=== PATIENT | female | born 1955 | race Caucasian/White ===

== ENCOUNTER → 2016-09-16 13:20 | Outpatient (CLI) | payer MEDICAID ==
[2016-02-22 14:29] VITALS: BMI 32.0
[~2016-09-16 13:20] MED LIST: CLONAZEPAM0.25 MG/TA PO; HYDROCODON-ACE1 EAC7 PO; HYDROCODONE-APA1 TAB PO; LOPRESSOR25 MG PO; PERCOCET 10/3251 TA1 PO; PROZAC20 MG; VALIUM5 MG
== END | disposition home or self-care (01) ==
LOC: D.CT 13:20
DX: I74.5 Embolism and thrombosis of iliac artery (principal)

== ENCOUNTER 2016-09-29 08:20 | Inpatient (IN) | payer MEDICAID ==
[2016-09-29] VITALS (37 sets, daily range): BP systolic 58–150; BP diastolic 29–87; BMI 30.8
[~2016-09-29] VITALS: Ht 160 cm; Wt 83.2 kg
--- NOTE | ~2016-09-29 | HEMODYNAMI ---
PATIENT:PREMA SOLORIO MEDICAL RECORD: [id number] : 53 LOCATION:[facility] ADMISSION DATE: 09/29/16 Generatedon:09/29/201612:24 Patient name: PREMA SOLORIO Patient #: [id number] SSN: : 1955 Date of study: 09/29/2016 Page: Of Hemodynamic Procedure Report Patient Data Patient Demographics Procedure consent was obtained First Name: PREMA Gender: Female Last Name: OSMIN : 1955 Patient #: [id number] Age: 60 year(s) Race: Unknown Additional ID: [id number] Contact details Address: [address] [place] [address] [place] State: [place] City: [facility] Zip code: [address] Past Medical History Allergies: No known allergies Admission Admission Data Admission Date: 09/29/2016 Admission Time: 8:20 Height (in.): 63 BSA: 1.82 (m2) Height (cm.): 160.02 BMI: 30.82 (kg/m2) Weight (lbs.): 174 Weight (kg.): 78.93 Lab Results Lab Result Date: 09/29/2016 Lab Result Time: 9:55 Biochemistry Name Units Result Min Max BUN mg/dl 16 --(---*)-- 7 18 Creatinine mg/dl 0.7 --(*---)-- 0.6 1.3 CBC Name Units Result Min Max Hematocrit % 40.3 -*(----)-- 42 54 Hemoglobin g/dl 13.2 -*(----)-- 13.5 17.5 Procedure Procedure Types Cath Procedure Diagnostic Procedure C [facility] w/Coronaries Miscellaneous Procedures Moderate Sedation up to 45 minutes Peripheral Cath Diagnostic Procedure Cath Peripheral Luhup-Kemcybt-Ojs-Off Procedure Description Procedure Date Procedure Date: 09/29/2016 Procedure Start Time: 11:09 Procedure End Time: 12:08 Procedure Staff Name Function Bulmaro Graf MD Performing Physician Yamila Mai RT Scrub Cosmo Soto RN Nurse Vik Butler RT Monitor Procedure Data Cath Procedure Fluoroscopy Diagnostic fluoroscopy Total fluoroscopy Time: time: 22.4 min 22.4 min Diagnostic fluoroscopy Total fluoroscopy dose: dose: 1262 mGy 1262 mGy Contrast Material Contrast Material Type Amount (ml) Isovue 300 267 Entry Location Entry Primary Successful Side Size Upsize 1 Upsize Entry Closure [place] ccessful Closure Location (Fr) (Fr) 2 (Fr) Remarks Device Remarks Femoral Left 5 Fr 6 Fr 6 Fr Exoseal artery Mid-Length Short Femoral Right 5 Fr 7 Fr Short Exoseal artery Femoral Right 6 Fr vein Short Estimated blood loss: 10 ml Diagnostic catheters Device Type Used For End Catheter Placement Cordis Tempo 5Fr UF Procedure catheter Cordis Tempo 5Fr UF Procedure catheter Cordis 5Fr Pigtail Procedure Catheter (MP) Cordis 5Fr JL 4.0 Procedure Catheter (MP) Cordis 5Fr 3DRC Catheter Procedure (MP) Procedure Complications No complications Procedure Medications Medication Administration Route Dosage Oxygen NC 2 l/min Heparin Flush Bag added to field 2 bags (1000units/500ml NS) 0.9% NaCl I.V. 100 ml/hr Fentanyl I.V. 50 mcg Versed I.V. 1 mg Fentanyl I.V. 50 mcg Versed I.V. 1 mg Fentanyl I.V. 50 mcg Versed I.V. 1 mg Fentanyl I.V. 50 mcg Versed I.V. 1 mg Heparin Bolus I.V. 5000 units Fentanyl I.V. 50 mcg Versed I.V. 1 mg Fentanyl I.V. 50 mcg Versed I.V. 1 mg Fentanyl I.V. 50 mcg Heparin Bolus I.V. 3000 units Fentanyl I.V. 50 mcg Fentanyl I.V. 50 mcg Versed I.V. 1 mg Hemodynamics Rest BSA: 1.82 (m2) HGB: 13.2 (g/dl) O2 Consumption: Estimated: 171.24 (ml/min) O2 Co nsumption indexed: Estimated:94.09 (ml/min/m) Heart Rate: 69 (bpm) Snapshots Pre Cath Intra NCS Post Cath Vital Signs Time Heart Resp SPO2 etCO2 [id number] NIBP (mmHg) Rhythm Pain Sedation Rate (ipm) (%) (mmHg) (mmHg) Status Level (bpm) 10:48:25 67 22 98 0 0 138/76(98) NSR 0 () 10(A) , No pain 10:52:39 65 11 100 0 0 138/82(110) NSR 0 () 10(A) , No pain 10:58:02 70 12 93 0 0 123/83(115) NSR 0 () 10(A) , No pain 11:06:14 67 18 93 0 0 108/62(89) NSR 0 () 10(A) , No pain 11:10:24 67 18 94 0 0 124/67(96) NSR 0 () 10(A) , No pain 11:14:40 69 20 94 0 0 117/65(85) NSR 0 () 9(A) , No pain 11:18:54 72 17 92 0 0 117/59(92) NSR 0 () 9(A) , No pain 11:23:10 71 17 92 0 0 118/55(90) NSR 0 () 9(A) , No pain 11:27:20 73 17 93 0 0 123/69(103) NSR 0 () 9(A) , No pain 11:31:31 82 17 97 0 0 138/76(113) NSR 0 () 9(A) , No pain 11:35:54 76 17 94 0 0 126/60(95) NSR 0 () 9(A) , No pain 11:40:10 73 17 95 0 0 117/58(77) NSR 0 () 9(A) , No pain 11:44:22 71 18 94 0 0 117/60(83) NSR 0 () 9(A) , No pain 11:48:31 72 17 95 0 0 133/77(106) NSR 0 () 9(A) , No pain 11:52:48 72 17 94 0 0 138/75(115) NSR 0 () 9(A) , No pain 11:57:06 69 17 94 0 0 137/77(109) NSR 0 () 9(A) , No pain 12:01:24 73 17 94 0 0 142/76(104) NSR 0 () 9(A) , No pain 12:05:34 83 17 94 0 0 121/95(115) NSR 0 (11) 9(A) , No pain 12:17:06 85 10 92 0 0 135/81(101) NSR 0 (11) 9(A) , No pain Medications Time Medication Route Dose Verified Delivered Reason Notes Effectiveness by by 10:47:45 Oxygen NC 2 Cosmo Cosmo Per physician l/min Charles Soto RN RN 10:47:54 Heparin Flush added 2 Cosmo Cosmo used for Bag to bags Charles Soto pool manager (1000units/500ml field RN NS) 10:48:06 0.9% NaCl I.V. 100 Cosmo Cosmo Per physician ml/hr Charles Soto RN RN 11:08:18 Fentanyl I.V. 50 Cosmo Cosmo for sedation mcg Charles Soto RN RN 11:08:25 Versed I.V. 1 mg Cosmo Cosmo for sedation Charles Soto RN RN 11:09:58 Fentanyl I.V. 50 Cosmo Cosmo for sedation mcg Charles Soto RN RN 11:10:03 Versed I.V. 1 mg Cosmo Cosmo for sedation Charles Soto RN RN 11:12:06 Fentanyl I.V. 50 Cosmo Cosmo for sedation mcg Charles Soto RN RN 11:12:09 Versed I.V. 1 mg Cosmo Cosmo for sedation Charles Soto RN RN 11:16:08 Fentanyl I.V. 50 Cosmo Cosmo for sedation mcg Charles Soto RN RN 11:16:11 Versed I.V. 1 mg Cosmo Cosmo for sedation Charles Soto RN RN 11:16:21 Heparin Bolus I.V. 5000 Cosmo Cosmo for units Charles Soto RN anticoagulation RN 11:31:12 Fentanyl I.V. 50 Cosmo Cosmo for sedation mcg Charles Soto RN RN 11:32:24 Versed I.V. 1 mg Cosmo Cosmo for sedation Charles Soto RN RN 11:34:52 Fentanyl I.V. 50 Cosmo Cosmo for sedation mcg Charles Soto RN RN 11:35:01 Versed I.V. 1 mg Cosmo Cosmo for sedation Charles Soto RN RN 11:42:06 Fentanyl I.V. 50 Cosmo Cosmo for sedation mcg Charles Soto RN RN 11:43:09 Heparin Bolus I.V. 3000 Cosmo Cosmo for units Charles Soto RN anticoagulation RN 11:48:50 Fentanyl I.V. 50 Cosmo Wilburn for sedation mcg Charles Soto RN RN 11:56:55 Fentanyl I.V. 50 Cosmo Wilburn for sedation mcg Charles Soto RN RN 12:02:28 Versed I.V. 1 mg Cosmo Wilburn for sedation Charles Soto RN supervisor metal furniture fabrication Log Time Note 10:16:32 Diagnostic Cath Status : Elective 10:17:45 Lab Result : Hemoglobin 13.2 g/dl 10:29:57 Cosmo Soto RN sent for patient. Start room use. 10:29:59 Time tracking: Regular hours 10:30:04 Plan of Care:Hemodynamics will remain stable., Cardiac rhythm will remain stable., Comfort level will be maintained., Respiratory function will remain adequate., Patient/ family verbilizes understanding of procedure., Procedure tolerated without complication., Recovers from procedure without complications.. 10:37:16 Procedure type changed to Cath procedure, Diagnostic procedure, LHC, LHC w/Coronaries, Miscellaneous Procedures, Moderate Sedation up to 45 minutes, Peripheral Cath Diagnostic Procedure, Cath Peripheral, Ofpni-Aepdhpe-Ylw-Off 10:42:01 Patient received from Pre/Post Procedure Room to CCL 1 Alert and oriented. Tansferred to table in Supine position. 10:42:02 Warm blankets applied, and pam hugger turned on for patient comfort. 10:42:02 Correct patient and procedure confirmed by team. 10:42:04 Signed procedure consent form obtained from patient. 10:42:05 ECG and BP/O2 sat monitors applied to patient. 10:42:06 Full Disclosure recording started 10:47:12 Vital chart was started 10:47:45 Oxygen 2 l/min NC was administered by Cosmo Soto RN; Per physician; 10:47:54 Heparin Flush Bag (1000units/500ml NS) 2 bags added to field was administered by Cosmo Soto RN; used for procedure; 10:48:06 0.9% NaCl 100 ml/hr I.V. was administered by Cosmo Soto RN; Per physician; 10:55:36 Baseline sample Acquired. 10:55:44 Baseline sample Acquired. 10:55:49 Rhythm: sinus rhythm 10:56:02 H&P Date Dictated: 09/23/2016 Within 30 days and on chart., H&P Addendum completed by physician on day of procedure. (MUST COMPLETE FOR ALL OUTPATIENTS). 10:56:03 Pre-procedure instructions explained to patient. 10:56:03 Pre-op teaching completed and patient verbalized understanding. 10:56:07 Family in patients room. 10:56:09 Patient NPO since Midnight. 10:56:17 Patient allergic to No known allergies 10:56:19 Is the patient allergic to Iodine/contrast media? No. 10:56:22 Is patient on blood thinner?Yes 10:56:50 ACC The patient was administered the following blood thiners within the last 24 hours: ACCPlavix 10:56:52 Patient diabetic? No. 10:56:59 Previous problem with sedation/anesthesia? No ? 10:57:01 Snore? Yes 10:57:02 Sleep apnea? No 10:57:03 Deviated septum? No 10:57:09 Opens mouth fully? Yes 10:57:10 Sticks out tongue? Yes 10:57:12 Airway obstruction? No ? 10:57:14 Dentures? No ? 10:57:21 Pre procedure: right dorsailis pedis pulse 1+ Palpable, but thready & weak; easily obliterated 10:57:23 Pre procedure: left dorsailis pedis pulse 1+ Palpable, but thready & weak; easily obliterated 10:57:26 Patient pain scale 0/10 ?. 10:57:33 IV patent on arrival in left forearm with 0.9% NaCl at O. 10:57:51 Lab results completed and on chart. 10:58:00 Bilateral groins area was prepped with chlora-prep and draped in sterile fashion 10:58:02 Alarms reviewed by R. N. 10:58:08 Sharps counted by scrub and verified by R.N. 10:58:15 Use device set Femoral Dx 10:58:17 Tegaderm 4 x 4 opened to sterile field. 10:58:18 Acist Manifold opened to sterile field. 10:58:19 Acist Hand Control opened to sterile field. 10:58:19 Acist Syringe opened to sterile field. 10:58:20 Bag Decanter opened to sterile field. 10:58:20 Medline Cath Pack opened to sterile field. 10:58:28 Terumo 5Fr Harmony Sheath opened to sterile field. 10:58:29 St Adam 260cm J .035 wire opened to sterile field. 10:58:30 Diagnostic Infinity 5Fr Multipack catheter opened to sterile field. 11:01:25 Zero performed for pressure channel P1 11::31 Zero performed for pressure channel P1 11:01:37 Zero performed for pressure channel P1 11::47 Zero performed for pressure channel P1 11::50 Zero performed for pressure channel P1 11:03:38 Zero performed for pressure channel P1 11::19 Lab Result : Hematocrit 40.3 % 11::19 Lab Result : Creatinine 0.7 mg/dl 11::19 Lab Result : BUN 16 mg/dl 11::16 Patient Weight : 174 kg 11::18 Patient Height : 63 cm 11:07:55 --------ALL STOP TIME OUT------ 11:08:04 Final Timeout: patient, procedure, and site verified with staff and physician. All members of the team are in agreement. 11:08:07 Bilateral groins site verified by team. 11:08:11 Physical assessment completed. ASA score P 2 - A patient with mild systemic disease as per Bulmaro Graf MD. 11:08:15 Sedation plan: IV Moderate Sedation Versed, Fentanyl 11:08:18 Fentanyl 50 mcg I.V. was administered by Cosmo Soto RN; for sedation; 11:08:25 Versed 1 mg I.V. was administered by Cosmo Soto RN; for sedation; 11::47 Procedure started. 11:09:51 Local anesthetic to left femerol artery with Lidocaine 2% by Bulmaro Graf MD.INITIAL ACCESS ONLY 11::58 Fentanyl 50 mcg I.V. was administered by Cosmo Soto RN; for sedation; 11:10:03 Versed 1 mg I.V. was administered by Cosmo Soto RN; for sedation; 11:11:47 Cordis 6Fr Brite Tip 35cm Sheath opened to sterile field. 11:12:06 Fentanyl 50 mcg I.V. was administered by Cosmo Soto RN; for sedation; 11:12:09 Versed 1 mg I.V. was administered by Cosmo Soto RN; for sedation; 11:12:27 A 5 Fr sheath was inserted into the Left Femoral artery 11:12:42 Sheath upsized to a 6 Fr Mid-Length. 11:14:09 Local anesthetic to right femoral artery with Lidocaine 2% by Bulmaro Graf MD.ADDITIONAL ACCESS 11:14:15 A 5 Fr sheath was inserted into the Right Femoral artery 11:15:27 [address] ROADRUNNER FIRM 260CM glide wire opened to sterile field. 11:15:28 Terumo 5FR STRAIGHT 100CM glide catheter opened to sterile field. 11:15:42 A Cordis Tempo 5Fr UF catheter was advanced over the wire and used for Procedure. 11:15:48 Abdominal angiogram w/ runoff was performed. 11:15:51 Right leg runoff performed. 11:15:53 Left leg runoff performed. 11:16:08 Fentanyl 50 mcg I.V. was administered by Cosmo Soto RN; for sedation; 11:16:11 Versed 1 mg I.V. was administered by Cosmo Soto RN; for sedation; 11:16:21 Heparin Bolus 5000 units I.V. was administered by Cosmo Soto RN; for anticoagulation; 11:16:39 glide wire wire advanced. 11:17:57 Wire removed. 11:18:01 Catheter removed. 11:18:46 glide wire wire advanced. 11:19:47 glide cath advanced 11:20:[address]M 260CM glide wire opened to sterile field. 11:21:05 Wire removed. 11:21:13 new glide wire advanced. 11:21:30 A Cordis Tempo 5Fr UF catheter was advanced over the wire and used for Procedure. 11:23:19 Terumo TORQUE DEVICE PLASTIC .038 opened to sterile field. 11:28:23 Wire removed. 11:28:25 Catheter removed. 11:28:30 A Cordis 5Fr Pigtail Catheter (MP) was advanced over the wire and used for Procedure. 11:29:21 LV gram done using MONTES 11:29:26 Injector settings: Ml/sec: 10, Volume: 20, 11:29:43 EF : 60 % 11:29:52 Catheter removed. 11:29:57 A Cordis 5Fr JL 4.0 Catheter (MP) was advanced over the wire and used for Procedure. 11:30:11 Terumo 6Fr Harmony Sheath opened to sterile field. 11:30:43 LCA angiography performed. 11:31:12 Fentanyl 50 mcg I.V. was administered by Cosmo Soto RN; for sedation; 11:31:50 Merit BasixCompak Inflation Kit opened to sterile field. 11:32:03 Santos Whisper J 300cm 0.014 guide wire opened to sterile field. 11:32:24 Versed 1 mg I.V. was administered by Cosmo Soto RN; for sedation; 11:32:48 Catheter removed. 11:32:57 A Cordis 5Fr 3DRC Catheter () was advanced over the wire and used for Procedure. 11:33:59 RCA angiography performed. 11:34:02 Catheter removed. 11:34:17 Medtronic Launcher 7Fr HS II SH guide catheter opened to sterile field. 11:34:17 Terumo 7Fr Harmony Sheath opened to sterile field. 11:34:37 Sheath upsized to a 7 Fr Short. 11:34:52 Fentanyl 50 mcg I.V. was administered by Cosmo Soto RN; for sedation; 11:34:56 7 Fr HS II SH guide catheter was inserted over the wire 11:34:59 whisper wire advanced. 11:35:01 Versed 1 mg I.V. was administered by Cosmo Soto RN; for sedation; 11:37:41 Wire advanced across lesion. 11:38:34 Medtronic Launcher 7Fr AR 1.0 guide catheter opened to sterile field. 11:38:52 Wire removed. 11:38:54 Guide catheter removed. 11:39:01 7 Fr ar 1 guide catheter was inserted over the wire 11:40:12 Medtronic Launcher 6Fr 3DRC guide catheter opened to sterile field. 11:40:18 Guide catheter removed. 11:40:38 6 Fr 3drc guide catheter was inserted over the wire 11:42:06 Fentanyl 50 mcg I.V. was administered by Cosmo Soto RN; for sedation; 11:42:14 [place] Sci Choice PT Extra Support J 300cm .014 gu opened to sterile field. 11:42:18 whisper wire advanced. 11:43:09 Heparin Bolus 3000 units I.V. was administered by Cosmo Soto RN; for anticoagulation; 11:44:19 Wire removed. 11:44:20 Guide catheter removed. 11:44:27 Medtronic Launcher 6Fr AR 1.0 guide catheter opened to sterile field. 11:44:37 6 Fr ar 1 guide catheter was inserted over the wire 11:45:59 choice pt wire advanced. 11:48:50 Fentanyl 50 mcg I.V. was administered by Cosmo Soto RN; for sedation; 11:49:05 Wire removed. 11:49:49 Santos Whisper J 300cm 0.014 guide wire opened to sterile field. 11:49:56 whisper wire advanced. 11:51:58 Terumo 6Fr Harmony Sheath opened to sterile field. 11:52:30 5Fr J Tip Temporary Pacing Catheter opened to sterile field. 11:53:55 A 6 Fr Short sheath was inserted into the Right Femoral vein 11:54:11 Cordis 6Fr Exoseal opened to sterile field. 11:54:19 Cordis 7Fr Exoseal opened to sterile field. 11:56:55 Fentanyl 50 mcg I.V. was administered by Cosmo Soto RN; for sedation; 11:57:43 Sheath upsized to a 6 Fr Short. 11:57:58 Wire removed. 11:57:59 Guide catheter removed. 11:58:04 Sheath removed intact; hemostasis achieved with Exoseal to the Left Femoral artery. 11:58:23 Sheath removed intact; hemostasis achieved with Exoseal to the Right Femoral artery. 11:59:06 Temporary pacer inserted 11:59:18 Temporary pacer turned on with the following settings: Rate 40, MA 5, Mode: Asynchronous. 11:59:35 Procedure ended.(Physican Out) 11:59:54 Fluoroscopy time 22.40 minutes. 11:59:59 Flurop Dose total: 1262 11:59:59 Fluoroscopy dose: 1262 mGy 12:00:31 Contrast amount:Isovue 300 267ml. 12:00:32 Sharps counted by scrub and verified by R.N. 12:00:35 Insertion/operative site no bleeding no hematoma. 12:00:40 Post-op/insertion site Right Femoral artery dressed using a 4 x 4 and Tegaderm. 12:00:43 Post-op/insertion site Left Femoral artery dressed using a 4 x 4 and Tegaderm. 12:00:58 Post right femoral artery:stable, soft, clean and dry 12:01:04 Post left femerol artery:stable, soft, clean and dry 12:01:28 SUTURE SILK 2-0 BLK BR FS 18 I opened to sterile field. 12:01:49 Post Procedure Pulses reassessed and unchanged 12:01:52 Post-procedure physical assessment completed. ASA score P 2 - A patient with mild systemic disease as per Bulmaro Graf MD. 12:01:59 Post procedure rhythm: unchanged. 12:02:01 Estimated blood loss: 10 ml 12:02:03 Post procedure instruction explained to patient.Patient verbalizes understanding. 12:02:04 Patient needs reinforcement of post procedure teaching. 12:02:28 Versed 1 mg I.V. was administered by Cosmo Soto RN; for sedation; 12:05:20 venous sheath sutured in place. 12:05:24 Procedure and supply charges have been captured, reviewed, submitted and are correct. 12:06:03 Procedure Complication : No complications 12:08:05 Vital chart was stopped 12:08:06 See physician's report for complete and final results. 12:08:07 Report given to CVICU. 12:08:10 Patient transfered to CVICU with Stretcher. 12:08:12 Procedure ended. 12:08:12 Full Disclosure recording stopped 12:08:27 End room use (Document Last) 12:22:32 St Adam Femstop Arch Gold opened to sterile field. 12:22:49 Femstop placed over the right femoral artery at 135 mmHg. Hemostasis achieved. Device Usage Item Name Manufacture Quantity Catalog Number Hospital Part Current Minim al Lot# / Charge Number Stock Stock Serial# Code Tegaderm 4 3M 1 [id number] [id number] 393978 5 x 4 Acist Acist 1 88404 313849 995211 440600 5 Manifold Medical Systems Inc Acist Hand Acist 1 08383 198615 461320 336375 5 Control Medical Systems Inc Acist Acist 1 25112 403597 389715 767681 20 Syringe Medical Systems Inc Bag Microtek 1 2001S 076018 69443 552192 5 Decanter Medical Inc. Medline Cardinal 1 [id number] 730257 25087 493776 [address] Terumo 5Fr Terumo 1 PSX069 796322 399588 719212 [address] [facility] Adam 1 191655 201889 951429 431164 30 260cm J .035 wire Diagnostic Cardinal 1 [id number] 879666 37463 672931 30 Infinity Health 5Fr Multipack catheter Cordis 6Fr Cardinal 1 [id number] 657098 800800 094948 1 Brite Tip Health 35cm Sheath [facility] 2 [id number] 321204 564950 5 ROADRUNNER FIRM 260CM glide wire Terumo 5FR Terumo 1 CG506 327281 47435 557874 4 STRAIGHT 100CM glide catheter Cordis Cardinal 1 [id number] 104571 292619 255707 10 Tempo 5Fr Health UF catheter Terumo [place] 1 TD01 220597 997208 042099 5 TORQUE Scientific DEVICE PLASTIC .038 Cordis 5Fr Cardinal 1 070753 5 Pigtail Health Catheter (MP) Cordis 5Fr Cardinal 1 057788 5 JL 4.0 Health Catheter (MP) Terumo 6Fr Terumo 2 MFY025 890444 969596 287032 40 Harmony Sheath Merit Merit 1 HE3796 065213 398863 561361 15 BasixPayMinspak Medical Inflation Kit Santos Santos 2 [id number] 711177 968916 418727 5 Whisper J Vascular 300cm 0.014 guide wire Cordis 5Fr Cardinal 1 955355 5 3DRC Health Catheter (MP) Medtronic Medtronic 1 [id number] 128259 388155 313069 0 Launcher 7Fr HS II SH guide catheter Terumo 7Fr Terumo 1 [id number] 286576 284042 542260 5 Harmony Sheath Medtronic Medtronic 1 [id number] 618462 406652 254120 0 Launcher 7Fr AR 1.0 guide catheter Medtronic Medtronic 1 [id number] 051993 893886 154676 1 Launcher 6Fr 3DRC guide catheter [place] Sci [place] 1 [id number] 625750 100048 347405 5 Choice PT Scientific Extra Support J 300cm .014 gu Medtronic Medtronic 1 [id number] 144329 14434 556775 1 Launcher 6Fr AR 1.0 guide catheter 5Fr J Tip Shah 1 [id number] 225357 31957 348961 2 Temporary Lifesciences Pacing Catheter Cordis 6Fr Cardinal 1 EX600 957960 419292 630185 10 Exoseal Health Cordis 7Fr Cardinal 1 EX700 232992 885393 160636 5 Exoseal Health SUTURE SILK Ethicon 1 685H 451744 594146 5 2-0 BLK BR FS [address] Adam 1 [id number] 848354 924812 742294 5 Femstop Arch Gold Signature Audit [place] Stage Time Signature Unsigned Intra-Procedure 09/29/2016 Vik BEE(R) 12:24:15 PM Signatures Monitor : Vik Butler RT Signature : Date : Time : [place] [id number] [place] [address]
[~2016-09-29 08:20] MED LIST changes: -CLONAZEPAM0.25 MG/TA PO; -HYDROCODONE-APA1 TAB PO; -LOPRESSOR25 MG PO
[2016-09-29] MEDS ORDERED: LOPRESSOR25 MG PO (09:35)
[2016-09-29] MEDS ORDERED: CLONAZEPAM0.25 MG/TA PO (09:35)
[2016-09-29] MEDS ORDERED: HYDROCODONE-APA1 TAB PO (09:38)
[2016-09-29 10:02] LABS: EOSINOPHILS 2.4 % (0-7); HEMATOCRIT 40.3 % (36.0-48.0); HEMOGLOBIN 13.2 g/dL (12-16); LYMPHOCYTES 37.6 % (15-50); MCH 31.7 pg (26.0-34.0); MCHC 32.8 g/dL (31.0-37.0); MCV 96.6 fL (80.0-100.0); MEAN PLATELET VOLUME 9.1 fL (7.4-10.4); MONOCYTES 13.3 % (2-11); NEUTROPHILS 45.7 % (40-80); RBC 4.17 10x6/uL (4.00-5.40); RDW 13.4 % (11.5-14.5); WBC 5.8 10x3/uL (4.8-10.8)
[2016-09-29 10:05] LABS: PLATELET COUNT 304 10x3/uL (130-400)
[2016-09-29 10:34] LABS: CALC OSMOLALITY 276 mosm/kg (275-300); CALCIUM 8.6 mg/dL (8.5-10.1); CARBON DIOXIDE 23.5 mmol/L (21.0-32.0); CHLORIDE - SERUM 106 mmol/L (98-107); CREATININE - SERUM 0.7 mg/dL (0.6-1.3); GLUCOSE 106 mg/dL (74-106); POTASSIUM - SERUM 4.6 mmol/L (3.5-5.1); SODIUM 138 mmol/L (136-145); UREA NITROGEN 16 mg/dL (7-18); eGFR NON AFRICAN AMERICAN 90 mL/min (90-120)
--- NOTE | 2016-09-29 13:00 | NUR ---
RECIEVED PT FROM [facility] VIA BED. ATTACHED TO ICU MONITORS. VSS AT THIS TIME. DRESSING'S TO RIGHT AND LEFT GROIN C/D/I. FEM STOP IN PLACE OVER RIGHT GROIN. AREA SOFT TO TOUCH WITH NO SIGNS OF HEMATOMA NOTED. TPM IN RIGHT GROIN. SETTING VVI 40. PT VERY ANXIOUS AT THIS TIME. FAMILY IN WAITING ROOM.
--- NOTE | 2016-09-29 13:15 | NUR ---
FAMILY BROUGHT BACK TO ROOM. DR. CONRAD AT BEDSIDE. UPDATE PROVIDED.
--- NOTE | 2016-09-29 14:15 | NUR ---
PRESSURE TO FEM STOP DECREASED OVER LAST HOUR. FEM STOP REMOVED. NO BLEEDING NOTED TO SITE. NO SIGNS OF HEMATOMA PRESENT. WILL CONTINUE TO ASSESS SITE. WEAK PP BILAT. WILL CONT TO ASSESS.
--- NOTE | 2016-09-29 14:38 | OP ---
PATIENT NAME: PREMA SOLORIO MEDICAL RECORD: [id number] :53 LOCATION:D.CVI D.CV ADMISSION DATE: SURGEON: KAHLIL CONRAD MD DATE OF OPERATION: 09/29/2016 PROCEDURES: 1. Left heart catheterization. 2. Selective coronary angiography. 3. Left ventriculogram. INDICATION: Angina and coronary artery disease. PROCEDURE: After informed consent was obtained and after detailed explanation of risks, benefits as well as alternative therapies, the patient elected to proceed with angiogram and angioplasty. The right femoral area was prepped and draped in normal sterile fashion. The right femoral artery was cannulated via modified Seldinger technique with placement of 6-Japanese sheath. All catheters exchanged through this sheath. FINDINGS: The left ventriculogram was performed in the standard 30-degree MONTES view reveals good cardiac wall motion. Overall ejection fraction is 60%. SELECTIVE CORONARY ANGIOGRAPHY: 1. Left main showed no significant angiographic disease. 2. Left anterior descending has [id number] irregularities, but no flow-limiting stenosis. 3. The left circumflex shows moderate irregularities, but no flow-limiting stenosis. 4. Right coronary artery has a 90% stenosis proximally and distally. ATTEMPTED PERCUTANEOUS TRANSLUMINAL CORONARY ANGIOPLASTY STENT OF THE RIGHT CORONARY ARTERY: There was an initial guide dissection with introduction of a hockey stick to guide and we were never able to wire the true lumen after this of the right coronary artery. She tolerated this well with no significant ST elevation and no significant dysrhythmia and no significant chest pain, we placed a temporary pacemaker for safety precaution and transferred her to the cardiovascular ICU with the temporary pacemaker in place. TRANSINT:[id number] Voice Confirmation ID: [id number] DOCUMENT ID: [id number] KAHLIL CONRAD MD at 1438 CC: [id number] DICTATION DATE: 09/29/16 1205 HEALTH DIRECTOR: 09/29/16 1422 [facility] [address] [id number]
--- NOTE | 2016-09-29 15:00 | NUR ---
FAMILY AT BEDSIDE. UPDATE PROVIDED.
--- NOTE | 2016-09-29 16:13 | NUR ---
C/O NAUSEA. ZOFRAN ADMINSITERED PER ORDERS.
--- NOTE | 2016-09-29 16:50 | NUR ---
500CC BOLUS OF NS STARTED. WILL CONT TO MONITOR BP. IF BP DOESN'T INCREASE WILL START DOPAMINE GTT.
--- NOTE | 2016-09-29 18:00 | NUR ---
FAMILY AT BEDSIDE.
--- NOTE | 2016-09-29 18:45 | NUR ---
DR. CONRAD AT BEDSIDE. HR DROPPED TO 45. BP 60/48. INSTRUCTED TO INCREASE TPM TO VVI 70. ORDERS RECIEVED.
--- NOTE | 2016-09-29 19:00 | NUR ---
REC'D TO CARE, DR. CONRAD AT BS. B/P LOW, CM - PACED AT 70 NOW - NS BOLUS STARTED AND NEW ORDERS REC'D. FRIEND AT BS. PT AWAKE AND ORIENTED.
--- NOTE | 2016-09-29 19:15 | NUR ---
NEW PIV 20GA TO R WRIST X 1 STICK, WILL INITIATE DOPAMINE PER ORDERS, NS BOLUS WIDE OPEN INFUSING, SBP 60S. PT C/O NAUSEA.
--- NOTE | 2016-09-29 19:20 | NUR ---
DR CONRAD HERE. ZOFRAN FOR NAUSEA GIVEN. WILL START DOPAMINE GTT. STAT H/H AND TYPE/SCREEN ORDERED.
[2016-09-29 19:43] LABS: HEMATOCRIT 34.2 % (36.0-48.0)
--- NOTE | 2016-09-29 19:51 | NUR ---
Caren AND H RESULTED - - DR. ANAMARIA PATHAK. B/P NOW 81/
--- NOTE | 2016-09-29 20:00 | NUR ---
PT WITH 200CC LIGHT BROWN EMESIS. DR. CONRAD NOTIFIED OF NEW LAB AND NEW ORDERS REC'D.
--- NOTE | 2016-09-29 20:25 | NUR ---
FRIEND AT BS PER PT REQUEST, B/P NOW 108/34 WITH DOPAMINE AT 7MCG/KG/MIN. ALARMS ON.
--- NOTE | 2016-09-29 21:47 | NUR ---
B/P 94/53, ADMIN PRN MORPHINE PER MD ORDER, SLOW IVP. WILL CONT CLOSE MONITORING.
--- NOTE | 2016-09-29 22:00 | NUR ---
RESTING WITH EYES CLOSED, B/P STABLE, NO SIGN OF DISTRESS.
--- NOTE | 2016-09-29 23:21 | NUR ---
REASSESSMENT PER FLOWSHEET. PT AWAKE, TALKING ON PHONE. TAKING ICE CHIPS. B/P STABLE WITH MAP 60S, HR 70S, PACED AND SINUS BEATS NOTED. ALARMS ON. WILL CONT CLOSE MONITORING.
[2016-09-29 23:56] LABS: HEMATOCRIT 34.4 % (36.0-48.0); HEMOGLOBIN 11.1 g/dL (12-16)
[2016-09-30] VITALS (71 sets, daily range): BP systolic 70–129; BP diastolic 35–90; Ht 160 cm; Wt 83.2 kg
--- NOTE | 2016-09-30 01:20 | NUR ---
PT WITH 100CC EMESIS - BROWN/GREEN. REPORTS "DRANK SOME DR. PEPPER". ADMIN ZOFRAN IV PER PRN ORDER. PT CLEANED, GOWN CHANGED. VSS. NO SIGN OF DISTRESS.
--- NOTE | 2016-09-30 02:50 | NUR ---
PT ON BEDPAN - VOIDED 450 CLEAR, JAMIL URINE. IGNACIO-CARE DONE AND LINENS CHANGED. PT COOPERATIVE, REPORTS "FEELING BETTER". VSS. C/L IN REACH. ALARMS ON.
--- NOTE | 2016-09-30 03:39 | NUR ---
REASSESSMENT PER FLOWSHEET, NO ACUTE CHANGES. PT AWAKENS EASILY, CM - PACED, DOPAMINE STILL AT 7MCG/KG/MIN. ALARMS ON AND C/L IN REACH.
[2016-09-30 04:54] LABS: BASOPHILS 0.1 % (0.0-2.0); EOSINOPHILS 0 % (0-7); HEMATOCRIT 36.5 % (36.0-48.0); HEMOGLOBIN 11.8 g/dL (12-16); IMMATURE GRANULOCYTES 0.2 % (0-5); LYMPHOCYTES 13.2 % (15-50); MCH 31.6 pg (26.0-34.0); MCHC 32.3 g/dL (31.0-37.0); MCV 97.9 fL (80.0-100.0); MEAN PLATELET VOLUME 9.2 fL (7.4-10.4); NEUTROPHILS 77.5 % (40-80); PLATELET COUNT 292 10x3/uL (130-400); RBC 3.73 10x6/uL (4.00-5.40); RDW 13.5 % (11.5-14.5)
[2016-09-30 05:05] LABS: WBC 15.3 10x3/uL (4.8-10.8)
[2016-09-30 05:14] LABS: CALC OSMOLALITY 282 mosm/kg (275-300); CALCIUM 7.9 mg/dL (8.5-10.1); CARBON DIOXIDE 24.8 mmol/L (21.0-32.0); CHLORIDE - SERUM 106 mmol/L (98-107); CREATININE - SERUM 0.8 mg/dL (0.6-1.3); GLUCOSE 161 mg/dL (74-106); POTASSIUM - SERUM 4.7 mmol/L (3.5-5.1); SODIUM 140 mmol/L (136-145); UREA NITROGEN 14 mg/dL (7-18); eGFR NON AFRICAN AMERICAN 77 mL/min (90-120)
--- NOTE | 2016-09-30 08:40 | NUR ---
IN TO ADMINISTER FRESH BAG OF FLUIDS. PT ASKS WHAT IT'S FOR. EXPLAINED FOR HYDRATION AND TO HELP KEEP BP UP. THEN ASKED OF IT WAS SUGARY OR SALTY, BECAUSE SHE DOESN'T NEED SUGARY STUFF. THEN ASKED IF SHE WAS GOING TO GET TO GO HOME TODAY. TOLD HER PROBABLY NOT, BUT WE WOULD KNOW MORE ONCE DR CONRAD COMES TO SEE HER. SHE THEN SAID SHE WOULD BE ALRIGHT TO GO HOME, SHE "ALWAYS IS"
--- NOTE | 2016-09-30 09:29 | NUR ---
DR CONRAD HAS BEEN IN TO SEE PATIENT. TURNED OFF PACEMAKER. HOPES TO GET IT OUT LATER THIS AFTERNOON IF ALL GOES WELL. WILL MOVE TO FLOOR LATER. PT VERY TEARY-EYED. ANXIOUS.
--- NOTE | 2016-09-30 12:30 | NUR ---
VENOUS SHEATH REMOVED BY SAM EDEN AND ARTERAL REMOVED SHEATH BY DR. CONRAD, PRESSURE DRESSING APPLIED, TOELRATED WITHOUT DIFFICULTY
--- NOTE | 2016-09-30 12:55 | NUR ---
Patient Name: PREMA SOLORIO Admission Status: Elective Accout number: [id number] Admission Date: 09-29-2016 : 1955 Admission Diagnosis: Attending: FABRICIO Current LOS: 1 Anticipated DC Date: UNKNOWN Planned Disposition: Home Primary Insurance: MEDICAID [place] Is the patient Alert and Oriented? Yes * How many steps to enter\exit or inside your home? NONE * PCP DR BRASWELL/JANKI PT USUALLY SEES DARIUS ALMODOVAR APN * Pharmacy [facility] OR [facility] * Preadmission Environment Home Alone * ADLs Independent * Equipment Cane Nebulizer Other Shower Chair Walker Wheelchair * Other Equipment GRAB BARS IN SHOWER * List name and contact numbers for known caregivers / representatives who currently or will assist patient after discharge: JOSUE MARIE, FRIEND/NEIGHBOR [phone] YASSINE CISNEROS, * Community resources currently utilized None * Additional services required to return to the preadmission environment? No * Can the patient safely return to the preadmission environment? Yes * Has this patient been hospitalized within the prior 30 days at any hospital? No Discharge Planning Comments: CM MET WITH PATIENT TO ASSESS DC PLAN/NEEDS. PT STATED SHE LIVES AT HOME AND IS INDEPENDENT IN HER CARE/ADL'S. STATED HER SISTER LIVES ACROSS THE [address] FROM HER AND SHE HAS NEIGHBORS THAT CAN ASSIST HER IF NEEDED AND WILL DRIVE HER HOME AT [place]. SHE STATED THAT SHE TYPICALLY AMBULATES WITH NO ASSISTANCE. SHE STATED SHE DOES NOT HAVE HH SERVICES AND DENIED NEED FOR HH OR REHAB SERVICES AT [place]. STATED SHE FELT SHE HAS ALL NEEDED DME. SHE STATED HER HOME IS A SAFE PLACE AND PLANS TO RETURN HOME AT DISCHARGE. SHE VOICED NO DC NEEDS AT THIS TIME. CM WILL CONTINUE TO FOLLOW AND ASSIST WITH ANY DC NEEDS THEY ARISE. Ride Operator: Vicki Richardson RN, CM
--- NOTE | 2016-09-30 14:40 | NUR ---
CARE ASSUMED OF PT. WILL CONTINUE PLAN OF CARE
--- NOTE | 2016-09-30 16:00 | NUR ---
PT RESTING IN BED QUIETLY. TITRATING DOPAMINE ACCORDING TO BP. WILL CONT TO ASSESS.
--- NOTE | 2016-09-30 18:24 | NUR ---
FAMILY AT BEDSIDE. UPDATE PROVIDED.
--- NOTE | 2016-09-30 19:00 | NUR ---
REPORT RECEIVED AND ASSESSMENT COMPLETED. PT HAS INCISION IN RIGHT GROIN. CDI. ON DPAMINE DRIP @ 13 MCG. VSS. WILL MONITOR.
--- NOTE | 2016-09-30 21:00 | NUR ---
REPOSITIONED PT FOR COMFORT. DOPAMINE DOWN TO 11MCG AT THIS TIME. VSS. WILL CONTINUE TO MONITOR AND TITRATE ACCORDINGLY
--- NOTE | 2016-09-30 23:00 | NUR ---
REASSESSMENT COMPLETED. SEE FLOWSHEET FOR FULL DETAILS. VSS. WILL MONITOR
[2016-10-01] VITALS (47 sets, daily range): BP systolic 77–117; BP diastolic 33–66
--- NOTE | 2016-10-01 01:00 | NUR ---
PT ASSISTED TO BATHROOM BY SARAH. NO OTHER CHANGES AT THIS TIME. VSS. WILL MONITOR
--- NOTE | 2016-10-01 03:00 | NUR ---
REASSESSMENT COMPLETED. SEE FLOWSHEET FOR FULL DETAILS. VSS. WILL CONTINUE TO MONITOR.
--- NOTE | 2016-10-01 05:24 | NUR ---
PT ASSISTED TO RESTROOM BY MARY. (PT REQUESTS FEMALES FOR BATHROOM ASSISTANCE) NO OTHER CHANGES AT THIS TIME. VSS. WILL CONTINUE TO MONITOR.
[2016-10-01 05:37] LABS: BASOPHILS 0.3 % (0.0-2.0); EOSINOPHILS 0.4 % (0-7); HEMOGLOBIN 10.3 g/dL (12-16); IMMATURE GRANULOCYTES 0.3 % (0-5); LYMPHOCYTES 28.9 % (15-50); MCH 31.3 pg (26.0-34.0); MCHC 32.2 g/dL (31.0-37.0); MCV 97.3 fL (80.0-100.0); MEAN PLATELET VOLUME 9.4 fL (7.4-10.4); MONOCYTES 14.6 % (2-11); NEUTROPHILS 55.5 % (40-80); PLATELET COUNT 256 10x3/uL (130-400); RBC 3.29 10x6/uL (4.00-5.40); RDW 13.3 % (11.5-14.5)
[2016-10-01 05:39] LABS: WBC 11.3 10x3/uL (4.8-10.8)
[2016-10-01 05:57] LABS: CALC OSMOLALITY 281 mosm/kg (275-300); CALCIUM 8.1 mg/dL (8.5-10.1); CARBON DIOXIDE 25.9 mmol/L (21.0-32.0); CHLORIDE - SERUM 107 mmol/L (98-107); CREATININE - SERUM 0.6 mg/dL (0.6-1.3); GLUCOSE 130 mg/dL (74-106); SODIUM 141 mmol/L (136-145); eGFR NON AFRICAN AMERICAN > 90 mL/min (90-120)
[2016-10-01 05:58] LABS: UREA NITROGEN 9 mg/dL (7-18)
--- NOTE | 2016-10-01 08:41 | OP ---
PATIENT NAME: PREMA SOLORIO MEDICAL RECORD: [id number] :53 LOCATION:D.CVI D.CV08 ADMISSION DATE:09/29/16 SURGEON: KAHLIL CONRAD MD DATE OF OPERATION: 09/29/2016 PROCEDURES: 1. Aortofemoral runoff. 2. Abdominal aortography. 3. Attempted but failed SALES AND SERVICE ENGINEER stent, left iliac for total occlusion. DESCRIPTION OF THE PROCEDURE: After informed consent was obtained and after detailed explanation of risks, benefits as well as alternative therapies, the patient elected to proceed with angiogram and angioplasty. The left femoral area was prepped and draped in normal sterile fashion. The left femoral artery was cannulated via modified Seldinger technique with placement of 6-Uzbek sheath. Right femoral area had a preexisting sheath from a coronary intervention. FINDINGS: Abdominal aortography was performed. The catheter was pulled down for aortofemoral runoff. Abdominal aortography reveals no significant abdominal aortic disease, no dissection or aneurysm formation. No renal artery stenosis. RIGHT LEG: A. Iliac: The common internal and external iliacs have moderate irregularities, but no flow-limiting stenosis. B. Femoral system: The common superficial and deep femoral have moderate irregularities, but no flow-limiting stenosis. C. Popliteal and infrapopliteal vessels are widely patent. LEFT LEG: A. The common iliac is open for approximately 10 mm and it is a total occlusion of the common iliac that reconstitutes at the external iliac. External iliac has no significant disease. B. Femoral system: The common superficial and deep femoral have moderate irregularities, but no flow-limiting stenosis. C. Popliteal and infrapopliteal vessels are patent with good 3-vessel runoff to the foot. ATTEMPTED SALES AND SERVICE ENGINEER STENT OF THE LEFT ILIAC: We could not traverse the total occlusion in the true lumen plane either from below or above. OVERALL IMPRESSION: Total occlusion of the left iliac not amenable to transcatheter revascularization. We will have to consider aortoiliac or fem-fem crossover surgery. TRANSINT:[id number] Voice Confirmation ID: [id number] DOCUMENT ID: [id number] OPERATIVE REPORT [id number] PREMA SOLORIO JEFFREY MD at 0841 CC: [id number] DICTATION DATE: 09/29/16 1208 MEDIA TRAFFIC MANAGER: 09/29/16 1452 ADM IN [facility] [address] [place] [address]
--- NOTE | 2016-10-01 09:29 | NUR ---
DR CONRAD CAME BY 0900. ASKED WHAT PT DOPAMINE RUNNING. AT 6. ASKED FOR IT TO BE TURNED OFF AND PATIENT MONITORED. CHECKING Q5MINS. SBP 84/36. PAGED DR CONRAD. SAYS TO LEAVE OFF DOPAMINE. PT WAS AT 77/46 WHILE I WAS ON THE PHONE WITH HIM. ASKED TO BE NOTIFIED IF SBP GETS DOWN INTO LOW 60'S AND TO RESTART DOPAMINE AT 3.
--- NOTE | 2016-10-01 12:06 | NUR ---
PT SITTING UP EATING LUNCH. NO DISTRESS NOTED. ASKING IF SHE CAN GO HOME NOW. BP 101/42
--- NOTE | 2016-10-01 15:00 | NUR ---
FAMILY IN FOR 3PM VISITATION. AWAITING ROOM ASSIGNMENT ON THE FLOOR.
--- NOTE | 2016-10-01 16:43 | NUR ---
[facility] PER WHEEL CHAIR. ALERT ORIENTED. TELEMERTY SHOWS SR 61. BP 86/39. DENIES ANY NEEDS. CALL LIGHT IN REACH WITH SR UP. WILL MONITOR
--- NOTE | 2016-10-01 18:57 | NUR ---
LYING QUIETLY. DENIES ANY NEEDS. TELEMERTY SHOWS SR. WILL MONITOR
[2016-10-02 01:06] VITALS: BP 94/38
[2016-10-02 05:24] VITALS: BP 90/38
--- NOTE | 2016-10-02 07:15 | NUR ---
ASSESSMENT COMPLETED. TELEMERTY SHOWS SR. UP AB TRACY. BRUISING TO GROINS BILATERAL. DENIES ANY NEEDS. CALL LIGHT IN REACH
--- NOTE | 2016-10-02 10:04 | NUR ---
DR CONRAD HERE AND PT TO BE DISCHARGED.
--- NOTE | 2016-10-02 12:16 | NUR ---
PT IV DCD WITH TIP INTACT. TO PRIVATE CAR PER WHEEL CHAIR
--- NOTE | 2016-10-16 10:19 | DS ---
PATIENT:PREMA SOLORIO :53 MEDICAL RECORD: [id number] DISCHARGE SUMMARY ADMISSION DATE: 09/29/16 DISCHARGE DATE: 10/02/16 DIAGNOSES: 1. Coronary artery disease. 2. Peripheral vascular disease. 3. Hyperlipidemia. 4. Smoking history. 5. Chronic obstructive pulmonary disease. HOSPITAL COURSE: Mrs. Solorio presents to Dr. Tong with claudication symptomatology, found to have total occlusion of her left iliac. She as well is having anginal symptomatology. She underwent coronary angiography revealing significant disease of the right coronary artery with the attempted PTCA stent of the right coronary. There was a severe guide dissection and right coronary acutely closed. She did have an inferior myocardial infarction with this; however, tolerated it well. Initially was on temporary pacemaker, her rhythm stabilized, she no longer needed the temporary pacemaker. She did not have any further chest pain. Her heart rate and blood pressure were stable. She was discharged home to continue her aspirin, no Plavix was instituted secondary to the fact that no stenting was undertaken. She did not have a beta pasha secondary to low blood pressure and did not have an MARÍA ELENA inhibitor secondary to low blood pressure. She is on pravastatin, will continue the pravastatin and she will follow up with [facility] in 2-3 weeks. TRANSINT:[id number] Voice Confirmation ID: [id number] DOCUMENT ID: [id number] KAHLIL CONRAD MD at 1019 CC: [id number] DICTATION DATE: 10/02/16 0958 FREIGHT SALES BROKER: 10/02/16 2227 DIS IN 10/02/16 [address] [place] [address]
== END 2016-10-02 12:18 | disposition home or self-care (01) | DRG 287 ==
LOC: D.CATH 08:20 → D.CVICU 12:29 → D.CATH 12:30 → D.CVICU 12:30 → D.M2 10-01 16:36
PROVIDERS: ADMIT Internal Medicine Interventional Cardiology
PROC: 4A023N7 Measurement of Cardiac Sampling and Pressure, Left Heart, Percutaneous Approach (ICD-10-PCS; 2016-09-29)
PROC: 5A1223Z Performance of Cardiac Pacing, Continuous (ICD-10-PCS; 2016-09-29)
PROC: B4101ZZ Fluoroscopy of Abdominal Aorta using Low Osmolar Contrast (ICD-10-PCS; 2016-09-29)
PROC: B2111ZZ Fluoroscopy of Multiple Coronary Arteries using Low Osmolar Contrast (ICD-10-PCS; principal; 2016-09-29 10:00)
PROC: B2151ZZ Fluoroscopy of Left Heart using Low Osmolar Contrast (ICD-10-PCS; 2016-09-29 10:00)
DX: I25.119 Atherosclerotic heart disease of native coronary artery with unspecified angina pectoris (principal); I74.5 Embolism and thrombosis of iliac artery; I70.92 Chronic total occlusion of artery of the extremities; J44.9 Chronic obstructive pulmonary disease, unspecified; Z87.891 Personal history of nicotine dependence

== ENCOUNTER → 2016-12-17 10:25 | Outpatient (CLI) | payer MEDICAID ==
[2016-09-30 12:39] VITALS: BMI 32.2
[~2016-12-17 10:25] MED LIST changes: +CLONAZEPAM0.25 MG/TA PO; +HYDROCODONE-APA1 TAB PO; +LOPRESSOR25 MG PO
== END | disposition home or self-care (01) ==
LOC: D.MRI 10:25
DX: M54.16 Radiculopathy, lumbar region (principal)

== ENCOUNTER 2017-01-15 11:26 | Emergency (ER) | payer MEDICAID ==
[2016-09-30 12:39] VITALS: BMI 32.2
[2017-01-15 12:09] LABS: BASOPHILS 0.4 % (0-2); EOSINOPHILS 2.1 % (0-7); HEMATOCRIT 38.2 % (36.0-48.0); HEMOGLOBIN 12.8 g/dL (12-16); IMMATURE GRANULOCYTES 0.1 % (0-5); LYMPHOCYTES 37.7 % (15-50); MCH 32.2 pg (26.0-34.0); MCHC 33.5 g/dL (31.0-37.0); MCV 96.2 fL (80.0-100.0); MEAN PLATELET VOLUME 9.1 fL (7.4-10.4); MONOCYTES 11.7 % (2-11); PLATELET COUNT 252 10x3/uL (130-400); RBC 3.97 10x6/uL (4.00-5.40); RDW 12.8 % (11.5-14.5)
[2017-01-15 12:32] LABS: ALBUMIN 3.1 g/dL (3.4-5.0); ALKALINE PHOSPHATASE 82 U/L (46-116); ALT (SGPT) 29 U/L (10-68); CALC OSMOLALITY 280 mosm/kg (275-300); CALCIUM 8.3 mg/dL (8.5-10.1); CARBON DIOXIDE 26.9 mmol/L (21.0-32.0); CHLORIDE - SERUM 106 mmol/L (98-107); CREATININE - SERUM 0.8 mg/dL (0.6-1.3); GLUCOSE 108 mg/dL (74-106); POTASSIUM - SERUM 4.6 mmol/L (3.5-5.1); PROTEIN - SERUM 7.4 g/dL (6.4-8.2); SODIUM 139 mmol/L (136-145); UREA NITROGEN 19 mg/dL (7-18); eGFR NON AFRICAN AMERICAN 77 mL/min (90-120)
== END 2017-01-15 12:20 | disposition home or self-care (01) ==
LOC: D.ER 11:26
PROVIDERS: Emergency Medicine
DX: R10.9 Unspecified abdominal pain (principal)

== ENCOUNTER → 2017-12-15 11:51 | Outpatient (CLI) | payer MEDICAID ==
[2016-09-30 12:39] VITALS: BMI 32.2
== END | disposition home or self-care (01) ==
LOC: D.US 12-14 13:00
DX: M79.605 Pain in left leg (principal); M79.604 Pain in right leg

== ENCOUNTER 2018-03-09 21:45 | Inpatient (IN) | payer MEDICAID ==
[~2018-03-09] VITALS: Ht 160 cm; Wt 90.0 kg
--- NOTE | ~2018-03-09 | HEMODYNAMI ---
PATIENT:PREMA SOLORIO MEDICAL RECORD: [id number] : 53 [address] [id number] ADMISSION DATE: 03/11/18 Generatedon:03/12/20189:46 Patient name: PREMA SOLORIO Patient #: [id number] SSN: : 1955 Date of study: 03/12/2018 Page: Of Hemodynamic Procedure Report Patient Data Patient Demographics Procedure consent was obtained First Name: PREMA Gender: Female Last Name: OSMIN : 1955 Patient #: [id number] Age: 62 year(s) Race: Unknown Additional ID: [id number] Contact details Address: [address] [place] [address] [facility] State: [place] [facility] [place] code: [address] Past Medical History Allergies: No known allergies Admission Admission Data Admission Date: 03/11/2018 Admission Time: 14:23 Admit Source: Other Room #: [facility] Lab Results Lab Result Date: 03/10/2018 Lab Result Time: 0:00 Biochemistry Name Units Result Min Max BUN mg/dl 18 --(---*)-- 7 18 Creatinine mg/dl 1 --(--*-)-- 0.6 1.3 CBC Name Units Result Min Max Hemoglobin g/dl 13.5 --(*---)-- 13.5 17.5 Procedure Procedure Types Cath Procedure Diagnostic Procedure Sedation Charges Moderate Sedation up to 15 minutes PCI Procedure Coronary Stent Coronary Stent Initial Coronary Stent Additional Procedure Description Procedure Date Procedure Date: 03/12/2018 Procedure Start Time: 9:12 Procedure End Time: 9:45 Procedure Staff Name Function Liban Anthony MD Performing Physician Yamila Mai RT Monitor Vik Butler RT Scrub Jayant Oneill RN Nurse Procedure Data Cath Procedure Fluoroscopy Diagnostic fluoroscopy Total fluoroscopy Time: 5.9 time: 5.9 min min Diagnostic fluoroscopy Total fluoroscopy dose: 888 dose: 888 mGy mGy Contrast Material Contrast Material Type Amount (ml) Isovue 300 80 Entry Location Entry Primary Successful Side Size Upsize Upsize Entry Closure Succes sful Closure Location (Fr) 1 (Fr) 2 (Fr) Remarks Device Remarks Femoral Right 6 Fr Exoseal artery Short Estimated blood loss: 10 ml Procedure Complications No complications Procedure Medications Medication Administration Route Dosage Oxygen NC 2 l/min Lidocaine 2% added to field 20 Heparin Flush Bag added to field 2 bags (1000units/500ml NS) 0.9% NaCl I.V. 100 ml/hr Oxygen 6 l/min Versed I.V. 2 mg Fentanyl I.V. 50 mcg Heparin Bolus I.V. 4000 units Integrilin (Bolus I.V. 7.3 ml 2mg/ml) 0.9% NaCl I.V. bolus 500 ml Versed I.V. 2 mg Fentanyl I.V. 50 mcg Versed I.V. 1 mg Fentanyl I.V. 50 mcg Versed I.V. 1 mg Fentanyl I.V. 50 mcg Plavix P.O. 600 mg Hemodynamics Rest HGB: 13.5 (g/dl) Heart Rate: 59 (bpm) Snapshots Pre Cath Intra NCS Post Cath Vital Signs Time Heart Resp SPO2 etCO2 NIBP (mmHg) Rhythm Pain Sedation Rate (ipm) (%) (mmHg) Status Level (bpm) 8:50:42 60 19 98 34.4 140/61(110) NSR 0 (11) 10(A) , No pain 8:55:25 62 12 98 0 138/70(121) NSR 0 (11) 10(A) , No pain 9:00:04 61 15 98 0 106/55(77) NSR 0 (11) 10(A) , No pain 9:04:40 63 18 94 0 91/44(75) NSR 0 (11) 10(A) , No pain 9:09:17 63 16 97 0 92/43(65) NSR 0 (11) 10(A) , No pain 9:13:53 63 15 98 0 84/44(57) NSR 0 (11) 10(A) , No pain 9:18:28 64 16 98 0 84/42(73) NSR 0 (11) 9(A) , No pain 9:23:04 67 14 98 0 87/36(58) NSR 0 (11) 9(A) , No pain 9:27:39 72 14 98 0 99/52(72) NSR 0 (11) 9(A) , No pain 9:32:13 74 13 98 0 114/66(105) NSR 0 (11) 9(A) , No pain 9:36:50 71 15 99 0 124/69(96) NSR 0 (11) 9(A) , No pain 9:41:30 73 14 99 0 129/71(94) NSR 0 (11) 10(A) , No pain Medications Time Medication Route Dose Verified Delivered Reason Notes Effectiveness by by 8:57:31 Oxygen NC 2 Liban Buffie used for l/min St Alirio Oneill RN procedure MD 8:57:38 Lidocaine 2% added 20ml Liban Liban for local to vial [facility] anesthetic field MD ZAMORA 8:57:44 Heparin Flush added 2 Liban Liban used for Bag to bags [facility] procedure (1000units/500ml field MD ZAMORA NS) 8:57:52 0.9% NaCl I.V. 100 Liban Buffie Per physician ml/hr [facility] Alirio Oneill RN, MD 9:00:50 0.9% NaCl I.V. 500 Liban Buffie Per physician bolus ml [facility] Alirio Oneill RN, MD 9:01:31 Oxygen simple 6 Liban Buffie used for pt mask l/min [facility] Alirio Oneill RN procedure states MD unable to keep cannula in nose due to dry sores noted on nasal passage. simple mask 9:07:38 Versed I.V. 2 mg Liban Buffie for sedation St Alirio Oneill RN, MD 9:07:44 Fentanyl I.V. 50 Liban Buffie for sedation mcg [facility] Alirio Oneill RN, MD 9:11:34 Versed I.V. 2 mg Liban Buffie for sedation [facility] Alirio Oneill RN, MD 9:11:37 Fentanyl I.V. 50 Liban Buffie for sedation mcg [facility] Alirio Oneill RN, MD 9:19:18 Heparin Bolus I.V. 4000 Liban Buffie for verifie d units [facility] Alirio Oneill RN anticoagulation with dr MD schafer 9:22:25 Integrilin I.V. 7.3 Liban Buffie for wasted (Bolus 2mg/ml) ml St Alirio Oneill RN antiplatelet 2.7 ml MD therapy of vial 9:25:03 Versed I.V. 1 mg Liban Buffie for sedation St Alirio Oneill RN, MD 9:25:08 Fentanyl I.V. 50 Liban Saba for sedation mcg [facility] Alirio Oneill RN, MD 9:35:34 Versed I.V. 1 mg Liban Saba for sedation St Alirio Oneill RN, MD 9:35:38 Fentanyl I.V. 50 Liban Saba for sedation mcg [facility] Alirio Oneill RN, MD 9:44:27 Plavix P.O. 600 Liban [address]aba for mg St Alirio Oneill RN antiplatelet therapy Procedure Log Time Note 8:31:42 Informed consent obtained and on chart 8:31:47 Admit Source: Other 8:32:12 Diagnostic Cath status Elective 8:32:14 Jayant Oneill RN sent for patient. Start room use. 8:42:08 Time tracking: Regular hours (M-F 7:00 - 5:00) 8:42:12 Plan of Care:Hemodynamics will remain stable., Cardiac rhythm will remain stable., Comfort level will be maintained., Respiratory function will remain adequate., Patient/ family verbilizes understanding of procedure., Procedure tolerated without complication., Recovers from procedure without complications.. 8:42:16 Patient received from Med II to CCL 1 Alert and oriented. Tansferred to table in Supine position. 8:42:17 Warm blankets applied, and pam hugger turned on for patient comfort. 8:42:18 Correct patient and procedure confirmed by team. 8:42:18 ECG and BP/O2 sat monitors applied to patient. 8:42:20 Pre-procedure instructions explained to patient. 8:42:21 Pre-op teaching completed and patient verbalized understanding. 8:49:02 Vital chart was started 8:49:07 Rhythm: sinus rhythm 8:49:08 Full Disclosure recording started 8:49:35 H&P Date Dictated: 03/10/2018 Within 30 days and on chart.. 8:49:39 Family unavailable. 8:49:42 Patient NPO since Midnight. 8:49:50 Is the patient allergic to Iodine/contrast media? No. 8:49:53 Is patient on blood thinner?No 8:49:58 ACC The patient was administered the following blood thiners within the last 24 hours: None 8:50:18 Patient diabetic? No. 8:50:21 Previous problem with sedation/anesthesia? No ? 8:50:22 Snore? Yes 8:50:23 Sleep apnea? No 8:50:24 Deviated septum? No 8:50:25 Opens mouth fully? Yes 8:50:25 Sticks out tongue? Yes 8:50:29 Airway obstruction? Yes COPD 8:50:34 Dentures? No ? 8:50:37 Pre procedure: right dorsailis pedis pulse 2+ Normal; easily identifiable; not easily obliterated 8:50:38 Patient pain scale 0/10 ?. 8:50:48 IV patent on arrival in left wrist with 0.9% NaCl at [facility]. 8:50:50 Lab results completed and on chart. 8:50:53 Right groin area was prepped with chlora-prep and draped in sterile fashion 8:50:53 Alarms reviewed by R. N. 8:50:54 Sharps counted by scrub and verified by R.N. 8:50:58 Use device set CATH PACK 8:51:02 Use device set ABBIE PCI 8:51:03 ACIST Syringe (51624) opened to sterile field. 8:51:04 ACIST Hand Control (12537) opened to sterile field. 8:51:05 ACIST Manifold (29330) opened to sterile field. 8:51:05 Medline Cath Pack ([id number]) opened to sterile field. 8:51:06 Bag Decanter (2002) opened to sterile field. 8:51:06 DIAGNOSTIC WIRE .035 260cm J wire (885426) opened to sterile field. 8:51:07 INFLATOR Merit BasixCompak (RK8366) opened to sterile field. 8:51:08 SHEATH Prelude 6Fr 0.035 (YFT-7W-73-035) opened to sterile field. 8:51:20 Tegaderm 4 x 4 (1626W) opened to sterile field. 8:52:30 Baseline sample Acquired. 8:57:31 Oxygen 2 l/min NC was administered by Jayant Oneill RN; used for procedure; 8:57:38 Lidocaine 2% 20ml vial added to field was administered by Liban Anthony MD; for local anesthetic; 8:57:44 Heparin Flush Bag (1000units/500ml NS) 2 bags added to field was administered by Liban Anthony MD; used for procedure; 8:57:52 0.9% NaCl 100 ml/hr I.V. was administered by Jayant Oneill RN; Per physician; 9:00:13 Physician paged 9:00:50 0.9% NaCl 500 ml I.V. bolus was administered by Jayant Oneill RN; Per physician; 9:01:31 Oxygen 6 l/min simple mask was administered by Jayant Oneill RN; used for procedure; pt states unable to keep cannula in nose due to dry sores noted on nasal passage. simple mask 9:03:23 Zero performed for pressure channel P1 9:06:11 Final Timeout: patient, procedure, and site verified with staff and physician. All members of the team are in agreement. 9:07:07 Right groin site verified by team. 9:07:18 Physical assessment completed. ASA score P 2 - A patient with mild systemic disease as per Liban Anthony MD. 9:07:20 Sedation plan: IV Moderate Sedation Medication:Versed, Fentanyl 9:07:38 Versed 2 mg I.V. was administered by Jayant Oneill RN; for sedation; 9:07:44 Fentanyl 50 mcg I.V. was administered by Jayant Oneill RN; for sedation; 9:11:34 Versed 2 mg I.V. was administered by Jayant Oneill RN; for sedation; 9:11:37 Fentanyl 50 mcg I.V. was administered by Jayant Oneill RN; for sedation; 9:12:04 Procedure started. 9:12:07 Local anesthetic to right femoral artery with Lidocaine 2% by Liban Anthony MD.INITIAL ACCESS ONLY 9:18:52 GLIDE WIRE ANGLE 260cm (SL8532) opened to sterile field. 9:19:18 Heparin Bolus 4000 units I.V. was administered by Jayant Oneill RN; for anticoagulation; verified with dr schafer 9:19:47 EXCH GLIDE wire advanced. 9:19:50 A 6 Fr Short sheath was inserted into the Right Femoral artery 9:20:07 Wire removed. 9:20:33 6 Fr JL 4.0 guide catheter was inserted over the wire 9:21:45 WHISPER wire advanced. 9:22:25 Integrilin (Bolus 2mg/ml) 7.3 ml I.V. was administered by Jayant Oneill RN; for antiplatelet therapy; wasted 2.7 ml of vial 9:24:15 Wire removed. unable to get back-up support 9:24:41 CHOICE PT Extra Support J 300cm guide wire ([id number]) opened to sterile field. 9:25:03 Versed 1 mg I.V. was administered by Jayant Oneill RN; for sedation; 9:25:08 Fentanyl 50 mcg I.V. was administered by Jayant Oneill RN; for sedation; 9:25:14 GUIDE 6FR JL 4.0 catheter ([id number]) opened to sterile field. 9:25:25 CHOICE PT ES wire advanced. 9:25:53 Inflate balloon Inflation number: 1 A EMERGE OTW 3.0 x 15 balloon ([id number]) was prepped and advanced across the 1st Ob Judy, then inflated to 10 FREIDA for 0:26 (min:sec). 9:26:38 Inflation number: 1 The EMERGE OTW 3.0 x 15 balloon ([id number]) was reinflated across the Mid CX, to 10 FREIDA for 0:26 (min:sec). 9:26:51 Balloon removed over the wire. 9:31:24 Place stent Inflation Number: 2 A ADAMA OTW 3.0 x 18 stent ([id number]) was prepped and advanced across the 1st Ob Judy. The stent was deployed at 14 FREIDA for 0:21 (min:sec). 9:32:26 Stent catheter was removed intact over wire. 9:35:34 Versed 1 mg I.V. was administered by Jayant Oneill RN; for sedation; 9:35:38 Fentanyl 50 mcg I.V. was administered by Jayant Oneill RN; for sedation; 9:36:44 Place stent Inflation Number: 2 A ADAMA RX 3.0 x 15 stent ([id number]) was prepped and advanced across the Mid CX. The stent was deployed at 14 FREIDA for 0:28 (min:sec). 9:37:08 Stent catheter was removed intact over wire. 9:37:09 Wire removed. 9:37:09 Guide catheter removed. 9:37:18 Sheath removed intact; hemostasis achieved with Exoseal to the Right Femoral artery. 9:37:24 Procedure ended.(Physican Out) 9:37:47 EXOSEAL 6Fr (EX600) opened to sterile field. :37:53 Fluoroscopy time 05.90 minutes. :37:57 Flurop Dose total: 888 9:37:57 Fluoroscopy dose: 888 mGy 9:38:01 Contrast amount:Isovue 300 80ml. 9:38:03 Sharps counted by scrub and verified by R.N. 9:38:05 Insertion/operative site no bleeding no hematoma. 9:38:12 Post-op/insertion site Right Femoral artery dressed using a 4 x 4 and Tegaderm. 9:38:15 Post right femoral artery:stable, clean and dry 9:38:16 Post Procedure Pulses reassessed and unchanged 9:38:19 Post-procedure physical assessment completed. ASA score P 2 - A patient with mild systemic disease as per Liban Anthony MD. 9:38:23 Post procedure rhythm: unchanged. 9:38:26 Estimated blood loss: 10 ml 9:38:29 Post procedure instruction explained to patient.Patient verbalizes understanding. 9:38:30 Patient needs reinforcement of post procedure teaching. 9:38:41 Procedure type changed to Cath procedure, Diagnostic procedure, Sedation Charges, Moderate Sedation up to 15 minutes, PCI procedure, Coronary Stent, Coronary Stent Initial, Coronary Stent Additional 9:40:09 WHISPER 300cm guide wire ([id number]) opened to sterile field. 9:42:08 Procedure and supply charges have been captured, reviewed, submitted and are correct. 9:42:10 See physician's report for complete and final results. 9:42:16 Procedure Complication : No complications 9:44:27 Plavix 600 mg P.O. was administered by Jayant Oneill RN; for antiplatelet therapy; 9:45:28 Vital chart was stopped 9:45:33 Report given to PCU. 9:45:37 Patient transfered to PCU with Bed. 9:45:51 Procedure ended. 9:45:51 Full Disclosure recording stopped 9:45:54 End room use (Document Last) Intervention Summary Intervention Notes Time ActionType Lesion and Equipment Used Action# Pressure Duration Attributes 9:25:53 Inflate 1st Ob Judy EMERGE OTW 3.0 1 10 00:26 balloon x 15 balloon ([id number]) 9:26:38 Reinflate Mid CX EMERGE OTW 3.0 1 10 00:26 balloon x 15 balloon ([id number]) 9:31:24 Place stent 1st Ob Judy ADAMA OTW 3.0 x 2 14 00:21 18 stent ([id number]) 9:36:44 Place stent Mid CX ADAMA RX 3.0 x 2 14 00:28 15 stent ([id number]) Device Usage Item Name Manufacture Quantity Catalog Number Hospital Part Current Minimal Lot# / Charge Number Stock Stock Serial# Code ACIST Syringe Acist 1 82475 502474 142441 411018 20 (48878) [employer] Systems Inc ACIST Hand Acist 1 58628 089916 200788 733035 5 Control (46429) [employer] ACIST Manifold Acist 1 84395 103363 283575 253691 5 (64149) [employer] Medline Cath Cardinal 1 [id number] 038560 65301 048186 5 Pack Health ([id number]) Bag Decanter Microtek 1 2001S 155428 30387 725570 5 () [employer] DIAGNOSTIC WIRE St Adam 1 337178 625885 026600 077197 30 .035 260cm J wire (850111) INFLATOR Merit Merit 1 KP0257 619005 442269 948570 15 BasixAchilles [employer] Medical (HA0833) SHEATH Prelude Merit 1 KXC-7N-69-35 292996 4496174 111100 5 6Fr 0.035 Medical (ILU-3L-62-035) Tegaderm 4 x 4 3M 1 1626W 635340 148291 027237 5 (1626W) GLIDE WIRE Terumo 1 FW6592 859598 312390 470766 5 ANGLE 260cm (KP0968) CHOICE PT Extra [place] 1 [id number] 536567 417610 858947 5 Support J 300cm Scientific guide wire ([id number]) GUIDE 6FR JL Medtronic 1 [id number] 995874 61199 942445 1 4.0 catheter (GJ5EN95) EMERGE OTW 3.0 [place] 1 [id number] 184110 624669 094894 5 [id number] x 15 balloon Scientific ([id number]) ADAMA OTW 3.0 x Medtronic 1 [id number] 690203 0796301 269940 5 [id number] 18 stent ([id number]) ADAMA RX 3.0 x Medtronic 1 [id number] 062189 8186055 504053 5 [id number] 15 stent ([id number]) EXOSEAL 6Fr Cardinal 1 EX600 919178 452376 887163 10 (EX600) Health ISPER 300cm Santos 1 [id number] 557864 572283 080668 5 guide wire Vascular ([id number]) Signature Audit Richards Stage Time Signature Unsigned Intra-Procedure 03/12/2018 Yamila 9:46:12 AM Counts RT(R) Signatures Monitor : Yamila Signature : Counts RT Date : Time : [id number] [place] [address]
--- NOTE | ~2018-03-09 | EC ---
PATIENT:PREMA SOLORIO DATE OF SERVICE: 03/09/18 SEX: F MEDICAL RECORD: [id number] DATE OF : 53 LOCATION:D.M2 D.212 AGE OF PATIENT: 62 ADMISSION DATE: 03/10/18 REFERRING PHYSICIAN: INTERPRETING PHYSICIAN: GUSTAVO OLIVEIRA MD ECHOCARDIOGRAM REPORT ECHO CHARGES 4 ECHO COMPLETE Date: 03/10/18 CLINICAL DIAGNOSIS: SOB ECHOCARDIOGRAPHIC MEASUREMENTS (adult normal given) AC root (d.<3.7cm) 3.6 cm LV Septum d (<1.2 cm> 1.4 cm Valve Excursion 1.6 cm LV Septum (systole) 1.5 cm Left Atria (s.<4.0cm> 3.4 cm LVPW d(<1.2cm) 1.4 cm RV (d.<2.3cm) 3.5 cm LVPW (sytole) 1.6 cm LV diastole(<5.6CM) 5.2 cm MV E-F(>70mm/sec) cm LV systole 3.4 cm LVOT Diameter 1.5 cm MV exc.(>10mm) 1.9 cm Est.ejection fraction (50-75%) % DOPPLER: LVIT cm/sec A 87.0 cm/sec E 75.0 cm/sec LA cm/sec RVSP 25 mmHg LVOT 165 cm/sec AOP1/2T m/s Asc. Ao 225 cm/sec RVOT 68 cm/sec RA cm/sec PA 138 cm/sec AV Gradient Peak 20.25mmHg AV Mean 12.84mmHg AV Area 1.0 cm MV Gradient Peak 3.29 mmHg MV Mean 1.03 mmHg MV Area cm COMMENTS: Agricultural Extension Officer: 2 TWAN RAMOS Web Applications Administrator: 4 Dr. Oliveira TAPE# PACS Pericardial Effusion N DATE OF SERVICE: PROCEDURE: Transthoracic echocardiogram. FINDINGS: 1. The patient has evidence of left ventricular hypertrophy and diastolic dysfunction. The inferior apical region is not well visualized and there is a hint on a few views that there may be mild hypokinesis, but the overall ejection fraction is preserved. 2. The left atrium is normal. ECHOCARDIOGRAM REPORT [id number] PREMA SOLORIO 3. The aortic valve is normal. 4. The mitral valve has trace mitral regurgitation. 5. The tricuspid valve has mild tricuspid regurgitation. RVSP is 25 mmHg. 6. The right ventricle is mildly dilated. 7. The right atrium is mildly dilated. 8. The aortic valve again is not well visualized. There appears to be some thickening and possibly sclerotic area. The peak pressure gradient is mildly elevated indicating mild aortic stenosis. CONCLUSIONS: The patient has evidence of hypertensive heart disease, possible regional wall motion abnormalities and mild aortic stenosis. TRANSINT:[id number] Voice Confirmation ID: [id number] DOCUMENT ID: [id number] GUSTAVO OLIVEIRA MD at 0748 CC: [id number] DICTATION DATE: 03/10/18 1532 AUDIT TECH: 03/10/18 1621 DIS IN 03/13/[address] [facility] [address] [place] [address]
--- NOTE | ~2018-03-09 | OP ---
PATIENT NAME: PREMA SOLORIO MEDICAL RECORD: [id number] :53 LOCATION:D.M2 D.2121 ADMISSION DATE:03/10/18 SURGEON: KOFI LEIVA MD DATE OF OPERATION: 03/12/2018 PTCA AND STENT REPORT DESCRIPTION OF PROCEDURE: After right femoral artery was cannulated via modified Seldinger technique, we used a JL4 guiding catheter. The 2 sequential stenosis, the distal 90% and 80% stenosis proximally were crossed with a 300-cm Whisper wire, was placed across the tightly occluded vessel down the distal portion of vessel. Next, a 3.0 x 15 mm Medtronic balloon was placed, passed both lesions and we exchanged the Whisper wire for a PT export wire. A 3.0 x 15 mm balloon was then used as a predeployment balloon. Next, stents were placed in the following fashion, 3.0 x 18 Resolute drug-eluting stent up to 14 atmospheres. More proximally, the 80% lesion was addressed with 3.0 x 15 mm Resolute drug-eluting stent. Final angiography showed excellent resolution of 90% stenosis distally and 80% stenosis proximally. No significant residual. NGOZI flow was 3 throughout the procedure. Integrilin was used during the case. Sheath closed with ExoSeal device. Plavix was loaded in the lab. TRANSINT:[id number] Voice Confirmation ID: [id number] DOCUMENT ID: [id number] KOFI LEIVA MD at 0843 CC: [id number] DICTATION DATE: 03/12/18 0949 CATEGORY PLANNER: 03/12/18 1025 DIS IN 03/13/18 [id number] [place] [address]
--- NOTE | ~2018-03-09 | CN ---
PATIENT NAME:PREMA SOLORIO MEDICAL RECORD: [id number] : 53 LOCATION:D. D.2121 ADMIT DATE: 03/11/18 ACCOUNT: [id number] CONSULTING PHYSICIAN: ZULAY STOVER MD REFERRING PHYSICIAN: GERALDINE BEJARANO MD DATE OF CONSULTATION: 03/11/2018 CONSULT REQUESTING PHYSICIAN: Geraldine Bejarano MD REASON FOR CONSULTATION: Pulmonary workup prior to CABG. HISTORY OF PRESENT ILLNESS: Ms. Solorio is a 62-year-old female who has history of smoking and COPD. The patient came in with worsening shortness of breath. There is no fever, no chill, no cough, and no sputum production. She has chest pain. Cardiac cath done, found out multiple blood vessel disease. REVIEW OF THE SYSTEMS: Mainly in the history of present illness. PAST MEDICAL HISTORY: 1. COPD. 2. History of pneumonia. 3. Hypertension. 4. Hypercholesterolemia. 5. Peripheral arterial disease. 6. Anxiety and depression. 7. Panic attacks. 8. ADHD. 9. History of childhood seizure. PAST SURGICAL HISTORY: 1. . 2. T&A. 3. Hysterectomy. 4. Lumber laminectomy. 5. Hand and wrist surgery. 6. Bilateral thrombus surgery in foot times 3. ALLERGIES: There are no known drug allergies. MEDICATIONS: [employer] was reviewed. PERSONAL AND SOCIAL HISTORY: The patient still continues to smoke. She is a nondrinker. FAMILY HISTORY: Noncontributory. PHYSICAL EXAMINATION: GENERAL: The patient is lying comfortably. She is not in acute distress. VITAL SIGNS: Blood pressure 131/48, pulse is 65, respiration is 18, temperature 98.4, and SpO2 is 94% on room air. HEENT: Conjunctivae are pink. Sclerae are not icteric. NECK: Neck is supple. No JVD. CHEST: There is prolonged expiration with wheezing. HEART: Rhythm regular. Normal sound. No murmur. ABDOMEN: Soft. Bowel sounds present. No hepatosplenomegaly. CONSULT REPORT [id number] PREMA SOLORIO RECTAL: Deferred. EXTREMITIES: No cyanosis. No clubbing. No pedal edema. SKIN: The skin is warm. Normal turgor. CENTRAL NERVOUS SYSTEM: The patient is awake and alert. There is no obvious cranial nerve abnormality. The gait was not tested. LABORATORY DATA: CBC; WBC 5.5, hemoglobin 12.6, hematocrit 37.1, and platelet count is 236. Chemistry; sodium 136, potassium is 5, BUN is 16, creatinine 0.8. CHEST RADIOGRAPH: There is no acute infiltrate. There is mild prominence of the pulmonary vessels. The proBNP is 600. IMPRESSION: 1. COPD without exacerbation. 2. Tobacco dependence syndrome. 3. 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 4. Anxiety and depression. 5. Dyspnea. 6. Peripheral vascular disease. RECOMMENDATION: 1. Continue Xopenex and add ipratropium nebulizer. 2. Brovana and budesonide nebulizer. 3. The patient is going for cardiac cath in a.m. 4. If the patient is going for CABG, she will need ABG and PFT. 5. I doubt obstructive sleep apnea. Dr. Bejarano, thank you for involving me in Ms. Solorio. TRANSINT:[id number] Voice Confirmation ID: [id number] DOCUMENT ID: [id number] ZULAY STOVER MD CC: [id number] DICTATION DATE: 03/11/181801 DIRECTOR OF ACADEMIC SUPPORT: 03/11/181942 ADM IN [facility] [address] [place] [address]
--- NOTE | ~2018-03-09 | HEMODYNAMI ---
PATIENT:PREMA SOLORIO MEDICAL RECORD: [id number] : 53 LOCATION:[address] [id number] ADMISSION DATE: 03/09/18 Generatedon:03/10/201816:05 Patient name: PREMA SOLORIO Patient #: [id number] SSN: : 1955 Date of study: 03/10/2018 Page: Of Hemodynamic Procedure Report Patient Data Patient Demographics Procedure consent was obtained First Name: PREMA Gender: Female Last Name: OSMIN : 1955 Patient #: [id number] Age: 62 year(s) Race: Unknown Additional ID: [id number] Contact details Address: [address] [place] [address] [facility] State: [place] City: [facility] Zip code: [address] Past Medical History Allergies: No known allergies Admission Admission Data Admission Date: 03/09/2018 Admission Time: 22:49 Room #: 2121 Lab Results Lab Result Date: 03/10/2018 Lab Result Time: 0:00 Biochemistry Name Units Result Min Max BUN mg/dl 18 --(---*)-- 7 18 Creatinine mg/dl 1 --(--*-)-- 0.6 1.3 CBC Name Units Result Min Max Hemoglobin g/dl 13.5 --(*---)-- 13.5 17.5 Procedure Procedure Types Cath Procedure Diagnostic Procedure C [facility] w/Coronaries Procedure Description Procedure Date Procedure Date: 03/10/2018 Procedure Start Time: 15:51 Procedure End Time: 16:02 Procedure Staff Name Function Ady Moralez MD Performing Physician Linda Oropeza RT Monitor Kole Sethi RT Scrub Jayant Oneill RN Nurse Procedure Data Cath Procedure Fluoroscopy Diagnostic fluoroscopy Total fluoroscopy Time: 1.7 time: 1.7 min min Diagnostic fluoroscopy Total fluoroscopy dose: 462 dose: 462 mGy mGy Contrast Material Contrast Material Type Amount (ml) Isovue 300 46 Entry Location Entry Primary Successful Side Size Upsize Upsize Entry Closure [place] ccessful Closure Location (Fr) 1 (Fr) 2 (Fr) Remarks Device Remarks Radial Right 6 Fr Mechanical artery Short Compression Estimated blood loss: 5 ml Diagnostic catheters Device Type Used For End Catheter Placement DIAGNOSTIC [place] 110cm 5 Multi-vessel Fr catheter ([id number]) Angiography Procedure Complications No complications Procedure Medications Medication Administration Route Dosage Oxygen etCO2 Nasal cannula 2 l/min Radial Cocktail I.A. 1 syringe (Verapomil 2mg/Nitro 400mcg/Heparin 1500units) Versed I.V. 2 mg Fentanyl I.V. 50 mcg Lidocaine 2% added to field 20 Heparin Flush Bag added to field 2 bags (1000units/500ml NS) 0.9% NaCl I.V. 100 ml/hr Hemodynamics Rest HGB: 13.5 (g/dl) Heart Rate: 57 (bpm) Pressure Samples Time Site Value (mmHg) Purpose Heart Use Rate(bpm) 15:55 LV 88/10,15 EDP 77 Gradients Valve Time Site Site Mean SEP/DFP Peak To Heart Use 1 2 (mmHg) (sec/min) Peak Rate (mmHg) (bpm) Aortic 15:56 LV AO 72 Snapshots Pre Cath Intra NCS Post Cath Vital Signs Time Heart Resp SPO2 etCO2 NIBP Rhythm Pain Sedation Rate (ipm) (%) (mmHg) (mmHg) Status Level (bpm) 15:33:38 58 20 95 24.7 109/65(80) NSR 0 (11) 10(A) , No pain 15:41:39 57 29 95 23.9 117/58(87) NSR 0 (11) 10(A) , No pain 15:45:47 56 19 95 23.9 114/62(89) NSR 0 (11) 10(A) , No pain 15:49:53 58 18 97 20.2 97/64(79) NSR 0 (11) 10(A) , No pain 15:54:17 71 14 96 39.7 94/44(71) NSR 0 (11) 10(A) , No pain 15:58:21 63 13 96 19.4 90/52(71) NSR 0 (11) 10(A) , No pain 16:02:23 62 16 97 36.7 102/52(73) NSR 0 (11) 10(A) , No pain Medications Time Medication Route Dose Verified Delivered Reason Notes Ef fectiveness by by 15:43:35 Oxygen etCO2 2 l/min Ady Buffie used for Nasal Naomy Oneill RN procedure cannula 15:44:07 0.9% NaCl I.V. 100 Ady Buffie Per ml/hr Naomy Oneill RN physician 15:44:41 Lidocaine 2% added 20ml Ady Buffie used for to vial Naomy Oneill RN procedure field 15:44:51 Heparin Flush added 2 bags Ady Buffie used for Bag to Naomy Oneill RN procedure (1000units/500ml field NS) 15:55:46 Radial Cocktail I.A. 1 Ady Ady used for (Verapomil syringe Naomy Moralez MD procedure 2mg/Nitro MD 400mcg/Heparin 1500units) 15:55:55 Versed I.V. 2 mg Ady Buffie for Naomy Oneill RN sedation 15:56:01 Fentanyl I.V. 50 mcg Ady Buffie for Naomy Oneill RN sedation Procedure Log Time Note 15:13:59 Kole Sethi RT(R) sent for patient. Start room use. 15:14:00 Time tracking: Regular hours (M-F 7:00 - 5:00) 15:14:04 Plan of Care:Hemodynamics will remain stable., Cardiac rhythm will remain stable., Comfort level will be maintained., Respiratory function will remain adequate., Patient/ family verbilizes understanding of procedure., Procedure tolerated without complication., Recovers from procedure without complications.. 15:28:31 Patient received from Med II to [facility] 2 Alert and oriented. Tansferred to table in Supine position. 15:28:32 Warm blankets applied, and pam hugger turned on for patient comfort. 15:28:33 Correct patient and procedure confirmed by team. 15:28:34 Signed procedure consent form obtained from patient. 15:28:35 ECG and BP/O2 sat monitors applied to patient. 15:32:23 Vital chart was started 15:33:08 Baseline sample Acquired. 15:33:13 Rhythm: sinus rhythm 15:33:14 Full Disclosure recording started 15:33:18 H&P Date Dictated: 03/10/2018 New H&P dictated by physician.. 15:33:19 Pre-procedure instructions explained to patient. 15:33:19 Pre-op teaching completed and patient verbalized understanding. 15:33:22 Family unavailable. 15:33:23 Patient NPO since Midnight. 15:43:35 Oxygen 2 l/min etCO2 Nasal cannula was administered by Jayant Oneill RN; used for procedure; 15:44:07 0.9% NaCl 100 ml/hr I.V. was administered by Jayant Oneill RN; Per physician; 15:44:10 IV to rt wrist D/C'd per Dr. Moralez. 22 g started to left forarm. 15:44:41 Lidocaine 2% 20ml vial added to field was administered by Jayant Oneill RN; used for procedure; 15:44:51 Heparin Flush Bag (1000units/500ml NS) 2 bags added to field was administered by Jayant Oneill RN; used for procedure; 15:45:08 Is the patient allergic to Iodine/contrast media? No. 15:45:11 Was the patient premedicated? No 15:45:12 Is patient on blood thinner?Yes 15:45:15 ACC The patient was administered the following blood thiners within the last 24 hours: ACCPlavix 15:45:17 Patient diabetic? No. 15:45:19 Previous problem with sedation/anesthesia? No ? 15:45:21 Snore? Yes 15:45:22 Sleep apnea? No 15:45:23 Deviated septum? No 15:45:24 Opens mouth fully? Yes 15:45:25 Sticks out tongue? Yes 15:45:28 Airway obstruction? Yes copd 15:45:31 Dentures? No ? 15:45:34 Pre procedure: right dorsailis pedis pulse 1+ Palpable, but thready & weak; easily obliterated 15:45:37 Pre procedure: left dorsailis pedis pulse 1+ Palpable, but thready & weak; easily obliterated 15:45:38 Patient pain scale 0/10 ?. 15:45:51 IV started by Jayant Oneill RN inleft forearm with a 20 gauge IV catheter with 0.9% NaCl at KVO. 15:45:54 Lab results completed and on chart. 15:45:58 Right Radial & Right Groin area was prepped with chlora-prep and draped in sterile fashion 15:45:59 Alarms reviewed by R. N. 15:45:59 Sharps counted by scrub and verified by R.N. 15:46:01 Physician arrived 15:46:01 --------ALL STOP TIME OUT------ 15:46:02 Final Timeout: patient, procedure, and site verified with staff and physician. All members of the team are in agreement. 15:46:04 Right Radial & Right Groin site verified by team. 15:46:07 Physical assessment completed. ASA score P 2 - A patient with mild systemic disease as per Ady Moralez MD. 15:46:10 Sedation plan: IV Moderate Sedation Medication:Versed, Fentanyl 15:46:53 Use device set Radial Dx or PCI 15:46:53 ACIST Syringe (50235) opened to sterile field. 15:46:54 Medline Cath Pack ([id number]) opened to sterile field. 15:46:54 Bag Decanter (2002S) opened to sterile field. 15:46:55 DIAGNOSTIC WIRE .035 260cm J wire (322721) opened to sterile field. 15:46:55 ACIST Hand Control (25710) opened to sterile field. 15:46:56 ACIST Manifold (10541) opened to sterile field. 15:46:56 Tegaderm 4 x 4 (1626W) opened to sterile field. 15:46:57 SHEATH 6Fr Prelude Radial ([id number]) opened to sterile field. 15:47:23 Lab Result : Creatinine 1 mg/dl 15:47:23 Lab Result : BUN 18 mg/dl 15:47:23 Lab Result : Hemoglobin 13.5 g/dl 15:50:59 Procedure started. 15:51:03 Local anesthetic to right radial artery with Lidocaine 2% by Ady Moralez MD.INITIAL ACCESS ONLY 15:52:19 Zero performed for pressure channel P1 15:52:37 A 6 Fr Short sheath was inserted into the Right Radial artery 15:53:58 A DIAGNOSTIC [place] 110cm 5 Fr catheter (413204) was advanced over the wire and used for Multi-vessel Angiography. 15:55:46 Radial Cocktail (Verapomil 2mg/Nitro 400mcg/Heparin 1500units) 1 syringe I.A. was administered by Ady Moralez MD; used for procedure; 15:55:53 LV hemodynamics recorded. 15:55:54 LV gram done using MONTES 15:55:55 Versed 2 mg I.V. was administered by Jayant Oneill RN; for sedation; 15:55:57 Injector settings: Ml/sec: 12, Volume: 8, 15:56:01 Fentanyl 50 mcg I.V. was administered by Jayant Oneill RN; for sedation; 15:57:52 RCA angiography performed. 15:57:54 Injector settings: Ml/sec: 3, Volume: 6, 15:58:39 LCA angiography performed. 15:58:42 Injector settings: Ml/sec: 3, Volume: 6, 16:00:15 Catheter removed. 16:00:20 TR BAND Standard ([id number]) opened to sterile field. 16:00:32 Sheath removed intact; hemostasis achieved with Mechanical Compression to the Right Radial artery. 16:00:35 Procedure ended.(Physican Out) 16:01:09 Fluoroscopy time 01.70 minutes. 16:01:14 Fluoroscopy dose: 462 mGy 16:01:14 Flurop Dose total: 462 16:01:18 Contrast amount:Isovue 300 46ml. 16:01:19 Sharps counted by scrub and verified by R.N. 16:01:37 TR band inflated with 10cc of air. 16:01:38 Insertion/operative site no bleeding no hematoma. 16:01:44 Post procedure rhythm: unchanged. 16:01:46 Estimated blood loss: 5 ml 16:01:48 Post procedure instruction explained to patient.Patient verbalizes understanding. 16:01:48 Patient needs reinforcement of post procedure teaching. 16:02:00 Procedure and supply charges have been captured, reviewed, submitted and are correct. 16:02:04 Procedure Complication : No complications 16:02:16 Vital chart was stopped 16:02:17 See physician's report for complete and final results. 16:02:25 Report given to Med II. 16:02:28 Patient transfered to Med II with Stretcher. 16:02:30 Procedure ended. 16:02:30 Full Disclosure recording stopped 16:03:13 End room use (Document Last) Device Usage Item Name Manufacture Quantity Catalog Number Hospital Part Current M inimal Lot# / Charge Number Stock Stock Serial# Code ACIST Syringe Acist 1 81759 398143 361526 032721 2 0 (91548) Earmark Medline Cath Cardinal 1 [id number] 309089 04016 664427 5 [facility] Content Ramen ([id number]) Bag Decanter Microtek 1 2001S 789660 29119 970635 5 (2001S) [employer] DIAGNOSTIC WIRE [place] 1 105520 441343 604998 827563 3 0 .035 260cm J wire (151523) ACIST Hand Acist 1 56211 377097 116257 319740 5 Control (73519) [employer] Inc ACIST Manifold Acist 1 84553 518411 439079 021497 5 (71258) [employer] Inc Tegaderm 4 x 4 3M 1 1626W 532866 182676 177075 5 (1626W) SHEATH 6Fr Merit 1 [id number] 493519 184672 201932 5 Prelude Radial Medical ([id number]) DIAGNOSTIC Terumo 1 40-7331 394597 994211 042885 5 [place] 110cm 5 Fr catheter (041301) TR BAND Terumo 1 [id number] 605514 618269 389510 4 0 Standard ([id number]) Signature Audit [place] Stage Time Signature Unsigned Intra-Procedure 03/10/2018 Linda Oropeza 4:05:34 PM RT(R) Signatures Monitor : Linda Oropeza RT Signature : Date : Time : [address] [place] [address]
--- NOTE | ~2018-03-09 | OP ---
PATIENT NAME: PREMA SOLORIO MEDICAL RECORD: [id number] :53 LOCATION:D.M2 D.2121 ADMISSION DATE:03/10/18 SURGEON: ADY OLIVEIRA MD DATE OF OPERATION: 03/10/2018 PROCEDURES: Left heart cath, LV gram, and coronary angiogram. CONTINUOUS MINING OPERATOR: Ady Oliveira MD PROCEDURE IN DETAIL: The patient was brought in cardiac catheterization lab. Right wrist was sterilely prepped and draped. The patient had 6-Croatian sheath placed in right radial artery using modified Seldinger technique. The patient then had selective intubation of left coronary, right coronary, and LV cavity. FINDINGS: 1. The left main has mild distal plaquing. 2. The LAD is shown to have an ostial 50% to 60% stenosis, distal 80% stenosis. 3. The circumflex at the takeoff of the terminal obtuse marginal branch has a 99% stenosis; at mid, 80% stenosis. 4. The RCA has 100% occlusion. HEMODYNAMICS: The LV gram shows an EF of 40% to 45%. There is mid inferior dyskinesis. There is 2+ to 3+ mitral regurgitation, which may be PVC induced. EDP is normal. 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 RECOMMENDATIONS: Consider coronary artery bypass grafting. We will get an echocardiogram also to assess further the mitral regurgitation. TRANSINT:[id number] Voice Confirmation ID: [id number] DOCUMENT ID: [id number] ADY OLIVEIRA MD at 0748 CC: [id number] DICTATION DATE: 03/10/18 1606 PRINTER ASSISTANT: 03/10/18 1650 DIS IN 03/13/18 [facility] [address] [place] [address]
[2018-03-09 22:14] LABS: BASOPHILS 0.5 % (0-2); EOSINOPHILS 1.2 % (0-7); HEMATOCRIT 41.8 % (36.0-48.0); HEMOGLOBIN 14.2 g/dL (12-16); IMMATURE GRANULOCYTES 0.1 % (0-5); LYMPHOCYTES 42.6 % (15-50); MCH 33.3 pg (26.0-34.0); MCV 97.9 fL (80.0-100.0); MEAN PLATELET VOLUME 9.2 fL (7.4-10.4); MONOCYTES 13.1 % (2-11); NEUTROPHILS 42.5 % (40-80); RBC 4.27 10x6/uL (4.00-5.40); RDW 13.1 % (11.5-14.5); WBC 9.2 10x3/uL (4.8-10.8)
[2018-03-09 22:22] LABS: ALBUMIN 3.3 g/dL (3.4-5.0); ALKALINE PHOSPHATASE 73 U/L (46-116); ALT (SGPT) 22 U/L (10-68); BILIRUBIN - TOTAL 0.33 mg/dL (0.2-1.3); CALC OSMOLALITY 277 mosm/kg (275-300); CALCIUM 8.6 mg/dL (8.5-10.1); CARBON DIOXIDE 25.2 mmol/L (21.0-32.0); CHLORIDE - SERUM 103 mmol/L (98-107); GLUCOSE 104 mg/dL (74-106); POTASSIUM - SERUM 4.4 mmol/L (3.5-5.1); PROTEIN - SERUM 7.3 g/dL (6.4-8.2); SODIUM 138 mmol/L (136-145); UREA NITROGEN 18 mg/dL (7-18); eGFR NON AFRICAN AMERICAN 59 mL/min (90-120)
[2018-03-09 22:30] LABS: PRO BNP 626 pg/mL (0-125); TROPONIN-I < 0.017 ng/mL (0.000-0.060)
[2018-03-09 22:35] LABS: PLATELET COUNT 308 10x3/uL (130-400)
[2018-03-09 23:05] VITALS: BP 168/75
[2018-03-10] MEDS ORDERED: PLAVIX75 MG PO (00:28)
[2018-03-10 01:35] VITALS: BP 129/42; BMI 33.9
[2018-03-10 06:33] VITALS: BP 103/53
[2018-03-10 07:59] VITALS: BP 109/44
[2018-03-10 09:28] LABS: CALCIUM 8.3 mg/dL (8.5-10.1); CARBON DIOXIDE 25.2 mmol/L (21.0-32.0); CREATININE - SERUM 0.9 mg/dL (0.6-1.3); POTASSIUM - SERUM 4.2 mmol/L (3.5-5.1)
[2018-03-10 09:29] LABS: BASOPHILS 0.6 % (0-2); HEMATOCRIT 41.2 % (36.0-48.0); HEMOGLOBIN 13.5 g/dL (12-16); IMMATURE GRANULOCYTES 0.1 % (0-5); LYMPHOCYTES 44.5 % (15-50); MCH 32.7 pg (26.0-34.0); MCHC 32.8 g/dL (31.0-37.0); MCV 99.8 fL (80.0-100.0); MEAN PLATELET VOLUME 9.5 fL (7.4-10.4); MONOCYTES 12.6 % (2-11); NEUTROPHILS 40.2 % (40-80); PLATELET COUNT 281 10x3/uL (130-400); RBC 4.13 10x6/uL (4.00-5.40); RDW 13.4 % (11.5-14.5); WBC 7.1 10x3/uL (4.8-10.8)
[2018-03-10 11:17] VITALS: BP 81/34
[2018-03-10 13:07] VITALS: BMI 33.8
[2018-03-10 15:26] VITALS: BP 87/40
[2018-03-11 02:02] VITALS: BP 96/56
[2018-03-11] MEDS ORDERED: TRAZODONE HCL150 MG PO (03:55)
[2018-03-11 06:23] VITALS: BP 125/49
[2018-03-11 06:31] LABS: HEMATOCRIT 37.1 % (36.0-48.0); HEMOGLOBIN 12.6 g/dL (12-16); LYMPHOCYTES 42.6 % (15-50); MCH 32.7 pg (26.0-34.0); MEAN PLATELET VOLUME 8.5 fL (7.4-10.4); NEUTROPHILS 46.4 % (40-80); PLATELET COUNT 236 10x3/uL (130-400); RBC 3.85 10x6/uL (4.00-5.40); RDW 12.4 % (11.5-14.5); WBC 5.5 10x3/uL (4.8-10.8)
[2018-03-11 06:35] LABS: MCV 96.4 fL (80.0-100.0)
[2018-03-11 06:47] LABS: ALBUMIN 2.8 g/dL (3.4-5.0); ALKALINE PHOSPHATASE 66 U/L (46-116); ALT (SGPT) 20 U/L (10-68); BILIRUBIN - TOTAL 0.42 mg/dL (0.2-1.3); CALC OSMOLALITY 272 mosm/kg (275-300); CALCIUM 8.4 mg/dL (8.5-10.1); CARBON DIOXIDE 27.8 mmol/L (21.0-32.0); CHLORIDE - SERUM 105 mmol/L (98-107); CREATININE - SERUM 0.8 mg/dL (0.6-1.3); GLUCOSE 94 mg/dL (74-106); MAGNESIUM - SERUM 1.9 mg/dL (1.8-2.4); PROTEIN - SERUM 6.2 g/dL (6.4-8.2); SODIUM 136 mmol/L (136-145); UREA NITROGEN 16 mg/dL (7-18); eGFR NON AFRICAN AMERICAN 77 mL/min (90-120)
[2018-03-11 07:54] VITALS: BP 116/49
[2018-03-11 11:04] VITALS: BP 111/61
[2018-03-11 15:01] VITALS: BP 131/48
[2018-03-11 18:14] VITALS: Ht 160 cm; Wt 90.0 kg
[2018-03-11 20:00] VITALS: BP 116/55
[2018-03-11 20:39] LABS: CALCIUM 8.3 mg/dL (8.5-10.1); CARBON DIOXIDE 28.2 mmol/L (21.0-32.0); POTASSIUM - SERUM 4.2 mmol/L (3.5-5.1)
[2018-03-11 21:21] LABS: BASOPHILS 0.8 % (0-2); EOSINOPHILS 1.5 % (0-7); HEMATOCRIT 37.9 % (36.0-48.0); HEMOGLOBIN 12.5 g/dL (12-16); IMMATURE GRANULOCYTES 0.1 % (0-5); LYMPHOCYTES 40.1 % (15-50); MCH 32.3 pg (26.0-34.0); MCV 97.9 fL (80.0-100.0); MEAN PLATELET VOLUME 9.3 fL (7.4-10.4); MONOCYTES 11.1 % (2-11); NEUTROPHILS 46.4 % (40-80); PLATELET COUNT 269 10x3/uL (130-400); RBC 3.87 10x6/uL (4.00-5.40); RDW 12.9 % (11.5-14.5)
[2018-03-11 21:23] LABS: WBC 7.5 10x3/uL (4.8-10.8)
[2018-03-12 04:00] VITALS: BP 85/40
[2018-03-12 04:38] LABS: BASOPHILS 0.8 % (0-2); EOSINOPHILS 2.5 % (0-7); HEMATOCRIT 36.1 % (36.0-48.0); HEMOGLOBIN 11.7 g/dL (12-16); IMMATURE GRANULOCYTES 0.2 % (0-5); LYMPHOCYTES 46.8 % (15-50); MCH 32.2 pg (26.0-34.0); MCHC 32.4 g/dL (31.0-37.0); MCV 99.4 fL (80.0-100.0); MEAN PLATELET VOLUME 9.1 fL (7.4-10.4); MONOCYTES 12.5 % (2-11); NEUTROPHILS 37.2 % (40-80); PLATELET COUNT 235 10x3/uL (130-400); RBC 3.63 10x6/uL (4.00-5.40)
[2018-03-12 04:55] LABS: ALBUMIN 2.6 g/dL (3.4-5.0); ANION GAP 8.1 mmol/L (8-16); BILIRUBIN - TOTAL 0.3 mg/dL (0.2-1.3); CARBON DIOXIDE 31.9 mmol/L (21.0-32.0); CREATININE - SERUM 0.9 mg/dL (0.6-1.3); MAGNESIUM - SERUM 1.8 mg/dL (1.8-2.4)
[2018-03-12 05:05] LABS: WBC 5.3 10x3/uL (4.8-10.8)
[2018-03-12 07:23] LABS: HEPATITIS C ANTIBODY >11.0 (0.0-0.9)
[2018-03-12 08:07] VITALS: BP 122/60
[2018-03-12 15:11] VITALS: BP 105/39
[2018-03-12 20:26] VITALS: BP 91/44
[2018-03-13 00:58] VITALS: BP 138/76
[2018-03-13 05:16] LABS: BASOPHILS 0.5 % (0-2); EOSINOPHILS 1.1 % (0-7); HEMATOCRIT 36.2 % (36.0-48.0); HEMOGLOBIN 11.7 g/dL (12-16); IMMATURE GRANULOCYTES 0.1 % (0-5); MCHC 32.3 g/dL (31.0-37.0); MCV 98.9 fL (80.0-100.0); MONOCYTES 12.3 % (2-11); PLATELET COUNT 229 10x3/uL (130-400); RBC 3.66 10x6/uL (4.00-5.40)
[2018-03-13 05:37] LABS: ALBUMIN 2.7 g/dL (3.4-5.0); BILIRUBIN - TOTAL 0.4 mg/dL (0.2-1.3); CALCIUM 8.1 mg/dL (8.5-10.1); CARBON DIOXIDE 27.6 mmol/L (21.0-32.0); CREATININE - SERUM 0.9 mg/dL (0.6-1.3); MAGNESIUM - SERUM 1.8 mg/dL (1.8-2.4); POTASSIUM - SERUM 4.6 mmol/L (3.5-5.1); PROTEIN - SERUM 6.2 g/dL (6.4-8.2); WBC 7.5 10x3/uL (4.8-10.8)
[2018-03-13 06:51] VITALS: BP 109/47
[2018-03-13 09:15] VITALS: BP 99/45
[2018-03-13] MEDS ORDERED: BACLOFEN10 MG PO (11:37)
[2018-03-13] MEDS ORDERED: IPRAT-ALBUT 0.5-3 ML UPD (11:37)
[2018-03-13 12:33] VITALS: BP 129/85
== END 2018-03-13 13:45 | disposition home or self-care (01) | DRG 247 ==
LOC: D.ER 21:45 → D.EDHOLD 22:49 → D.M2 22:49 → OBSVTIME 22:49 → D.M2 23:28
PROVIDERS: Family Medicine; Internal Medicine Cardiovascular Disease
PROC: B2151ZZ Fluoroscopy of Left Heart using Low Osmolar Contrast (ICD-10-PCS; 2018-03-10)
PROC: 4A023N7 Measurement of Cardiac Sampling and Pressure, Left Heart, Percutaneous Approach (ICD-10-PCS; 2018-03-10)
PROC: B2111ZZ Fluoroscopy of Multiple Coronary Arteries using Low Osmolar Contrast (ICD-10-PCS; principal; 2018-03-10 08:00)
PROC: 027135Z Dilation of Coronary Artery, Two Arteries with Two Drug-eluting Intraluminal Devices, Percutaneous Approach (ICD-10-PCS; 2018-03-12)
DX: I25.119 Atherosclerotic heart disease of native coronary artery with unspecified angina pectoris (principal); F17.213 Nicotine dependence, cigarettes, with withdrawal; I10 Essential (primary) hypertension; F41.9 Anxiety disorder, unspecified; F32.9 Major depressive disorder, single episode, unspecified; I73.9 Peripheral vascular disease, unspecified; J44.9 Chronic obstructive pulmonary disease, unspecified; I34.0 Nonrheumatic mitral (valve) insufficiency

== ENCOUNTER 2018-05-11 16:38 | Emergency (ER) | payer MEDICAID ==
[~2018-05-11] VITALS: Ht 160 cm; Wt 86.4 kg
[~2018-05-11 16:38] MED LIST changes: +BACLOFEN10 MG PO; +IPRAT-ALBUT 0.5-3 ML UPD; +PLAVIX75 MG PO; +TRAZODONE HCL150 MG PO
[2018-05-11 16:46] VITALS: BP 126/97; Ht 160 cm; Wt 86.4 kg
[2018-05-11 18:06] LABS: BASOPHILS 0.6 % (0-2); HEMATOCRIT 39.5 % (36.0-48.0); HEMOGLOBIN 13.1 g/dL (12-16); IMMATURE GRANULOCYTES 0.1 % (0-5); LYMPHOCYTES 33.2 % (15-50); MCH 32.4 pg (26.0-34.0); MCHC 33.2 g/dL (31.0-37.0); MCV 97.8 fL (80.0-100.0); MEAN PLATELET VOLUME 9.2 fL (7.4-10.4); MONOCYTES 11.9 % (2-11); NEUTROPHILS 52.2 % (40-80); PLATELET COUNT 255 10x3/uL (130-400); RBC 4.04 10x6/uL (4.00-5.40); RDW 12.8 % (11.5-14.5); WBC 7.2 10x3/uL (4.8-10.8)
[2018-05-11 18:24] LABS: ALBUMIN 3.1 g/dL (3.4-5.0); ALKALINE PHOSPHATASE 83 U/L (46-116); ALT (SGPT) 23 U/L (10-68); C-REACTIVE PROTEIN 1.3 mg/dL (0.0-0.9); CALC OSMOLALITY 280 mosm/kg (275-300); CALCIUM 9.2 mg/dL (8.5-10.1); CARBON DIOXIDE 31.7 mmol/L (21.0-32.0); CHLORIDE - SERUM 105 mmol/L (98-107); CREATININE - SERUM 0.8 mg/dL (0.6-1.3); GLUCOSE 92 mg/dL (74-106); POTASSIUM - SERUM 4.1 mmol/L (3.5-5.1); PROTEIN - SERUM 7.3 g/dL (6.4-8.2); SODIUM 142 mmol/L (136-145); UREA NITROGEN 8 mg/dL (7-18); eGFR NON AFRICAN AMERICAN 77 mL/min (90-120)
== END 2018-05-11 18:39 | disposition home or self-care (01) ==
LOC: D.ER 16:38
PROVIDERS: Family Medicine
DX: G57.12 Meralgia paresthetica, left lower limb (principal); F60.3 Borderline personality disorder; G40.909 Epilepsy, unspecified, not intractable, without status epilepticus; I10 Essential (primary) hypertension; J44.9 Chronic obstructive pulmonary disease, unspecified; F17.200 Nicotine dependence, unspecified, uncomplicated

== ENCOUNTER 2018-07-17 11:24 | Emergency (ER) | payer MEDICAID ==
[~2018-07-17] VITALS: Ht 160 cm; Wt 84.5 kg
[2018-07-17 11:35] VITALS: Ht 160 cm; Wt 84.5 kg
[2018-07-17 12:01] LABS: BASOPHILS 0.6 % (0-2); HEMATOCRIT 41.7 % (36.0-48.0); HEMOGLOBIN 13.9 g/dL (12-16); IMMATURE GRANULOCYTES 0.2 % (0-5); MCH 32.6 pg (26.0-34.0); MCHC 33.3 g/dL (31.0-37.0); MCV 97.9 fL (80.0-100.0); MEAN PLATELET VOLUME 9.7 fL (7.4-10.4); MONOCYTES 11.2 % (2-11); PLATELET COUNT 264 10x3/uL (130-400); RBC 4.26 10x6/uL (4.00-5.40); RDW 13.6 % (11.5-14.5); WBC 6.6 10x3/uL (4.8-10.8)
[2018-07-17 12:15] LABS: ALBUMIN 3.2 g/dL (3.4-5.0); ALKALINE PHOSPHATASE 72 U/L (46-116); ALT (SGPT) 19 U/L (10-68); BILIRUBIN - TOTAL 0.34 mg/dL (0.2-1.3); CALC OSMOLALITY 280 mosm/kg (275-300); CALCIUM 8.5 mg/dL (8.5-10.1); CARBON DIOXIDE 29.1 mmol/L (21.0-32.0); CHLORIDE - SERUM 103 mmol/L (98-107); CREATININE - SERUM 0.8 mg/dL (0.6-1.3); GLUCOSE 118 mg/dL (74-106); POTASSIUM - SERUM 4.3 mmol/L (3.5-5.1); PROTEIN - SERUM 7.5 g/dL (6.4-8.2); SODIUM 139 mmol/L (136-145); UREA NITROGEN 19 mg/dL (7-18); eGFR NON AFRICAN AMERICAN 77 mL/min (90-120)
[2018-07-17 12:29] LABS: CKMB 0.3 U/L (0.0-3.6); CREATINE KINASE 42 UL (21-215); LIPASE 206 U/L (73-393); PRO BNP 644 pg/mL (0-125); THYROID STIMULATING HORMONE 0.84 uIU/mL (0.36-3.74)
[2018-07-17 12:31] LABS: TROPONIN-I < 0.017 ng/mL (0.000-0.060)
[2018-07-17] MEDS ORDERED: LEVOFLOXACIN500 MG PO (13:27)
[2018-07-17] MEDS ORDERED: MEDROL DOSE PACK4 MG PO (13:53)
[2018-07-17 15:26] LABS: INR 0.96 (0.85-1.17)
[2018-07-17 17:55] VITALS: BP 130/55
== END 2018-07-17 18:03 | disposition home or self-care (01) ==
LOC: D.ER 11:24
PROVIDERS: Emergency Medicine
DX: R09.1 Pleurisy (principal); J40 Bronchitis, not specified as acute or chronic; J01.90 Acute sinusitis, unspecified; I10 Essential (primary) hypertension; J44.9 Chronic obstructive pulmonary disease, unspecified

== ENCOUNTER 2018-11-25 06:58 | Outpatient (CLI) | payer MEDICAID ==
[~2018-11-25] VITALS: Ht 160 cm; Wt 88.2 kg
--- NOTE | ~2018-11-25 | HEMODYNAMI ---
PATIENT:PREMA SOLORIO MEDICAL RECORD: [id number] : 53 LOCATION:[facility] ADMISSION DATE: 11/25/18 Generatedon:11/25/20189:21 Patient name: PREMA SOLORIO Patient #: [id number] SSN: : 1955 Date of study: 11/25/2018 Page: Of Hemodynamic Procedure Report Patient Data Patient Demographics Procedure consent was obtained First Name: PREMA Gender: Female Last Name: OSMIN : 1955 Patient #: [id number] Age: 62 year(s) Race: Unknown Additional ID: [id number] Contact details Address: [address] [place] [address] [facility] State: [place] City: [facility] [place] Zip code: [address] Past Medical History Allergies: No known allergies Admission Admission Data Admission Date: 11/25/2018 Admission Time: 6:58 Weight (lbs.): 194.01 Weight (kg.): 88 Lab Results Lab Result Date: 11/25/2018 Lab Result Time: 0:00 Biochemistry Name Units Result Min Max BUN mg/dl 20 --(----)*- 7 18 Creatinine mg/dl 0.7 --(*---)-- 0.6 1.3 CBC Name Units Result Min Max Hemoglobin g/dl 13.9 --(*---)-- 13.5 17.5 Procedure Procedure Types Cath Procedure Diagnostic Procedure C [facility] w/Coronaries FFR/IVUS FFR Initial PCI Procedure Coronary Stent Coronary Stent Initial Procedure Description Procedure Date Procedure Date: 11/25/2018 Procedure Start Time: 9:01 Procedure End Time: 9:20 Procedure Staff Name Function Bulmaro Graf MD Performing Physician Barb Hopper RT Scrub Vincent Arriola RN Nurse Brandie Jeffery RT Monitor Cosmo Soto RN Front Line Leader Procedure Data Cath Procedure Fluoroscopy Diagnostic fluoroscopy Total fluoroscopy Time: 2.8 time: 2.8 min min Diagnostic fluoroscopy Total fluoroscopy dose: 225 dose: 225 mGy mGy Contrast Material Contrast Material Type Amount (ml) Isovue 300 48 Entry Location Entry Primary Successful Side Size Upsize Upsize Entry Closure Succes sful Closure Location (Fr) 1 (Fr) 2 (Fr) Remarks Device Remarks Femoral Right 6 Fr Exoseal artery Short Estimated blood loss: 10 ml Diagnostic catheters Device Type Used For End Catheter Placement MULTIPACK Pigtail 5 Fr Procedure catheter Procedure Complications No complications Procedure Medications Medication Administration Route Dosage 0.9% NaCl I.V. 100 ml/hr Oxygen etCO2 Nasal cannula 2 l/min Heparin Flush Bag added to field 2 bags (1000units/500ml NS) Lidocaine 2% added to field 20 Versed I.V. 2 mg Fentanyl I.V. Versed I.V. 2 mg Fentanyl I.V. 100 mcg Versed I.V. 2 mg Heparin Bolus I.V. 4000 units Hemodynamics Rest HGB: 13.9 (g/dl) Heart Rate: 68 (bpm) Pressure Samples Time Site Value (mmHg) Purpose Heart Use Rate(bpm) 9:06 LV 133/16,15 Snapshot 68 9:06 AO 149/102(118) Pullback 68 Gradients Valve Time Site Site 2 Mean SEP/DFP Peak To Heart Use 1 (mmHg) (sec/min) Peak Rate (mmHg) (bpm) Aortic 9:06 LV AO 68 149/102(118) Snapshots Pre Cath Intra NCS Post Cath Vital Signs Time Heart Resp SPO2 etCO2 NIBP (mmHg) Rhythm Pain Sedation Rate (ipm) (%) (mmHg) Status Level (bpm) 8:29:48 67 20 95 30.8 118/77(95) NSR 0 (11) 10(A) , No pain 8:34:02 68 16 95 21 107/49(84) NSR 0 (11) 10(A) , No pain 8:38:53 69 13 94 24.8 98/65(88) NSR 0 (11) 10(A) , No pain 8:43:56 70 16 91 28.6 112/82(106) NSR 0 (11) 10(A) , No pain 8:48:04 68 17 93 24.8 114/65(87) NSR 0 (11) 10(A) , No pain 8:52:14 65 17 93 21.8 124/61(87) NSR 0 (11) 10(A) , No pain 8:56:26 63 17 95 23.3 127/65(91) NSR 0 (11) 10(A) , No pain 9:00:40 67 16 96 21 109/52(84) NSR 0 (11) 10(A) , No pain 9:04:48 68 15 91 0 118/57(87) NSR 0 (11) 10(A) , No pain 9:08:57 68 13 92 31.6 120/60(93) NSR 0 (11) 10(A) , No pain 9:13:11 67 26 92 28.6 96/50(77) NSR 0 (11) 9(A) , No pain 9:17:17 67 22 92 36.1 89/50(69) NSR 0 (11) 9(A) , No pain Medications Time Medication Route Dose Verified Delivered Reason Notes Effectiveness by by 8:31:44 0.9% NaCl I.V. 100 Vincent Vincent Per physician ml/hr Zeinab Arriola RN RN 8:31:56 Oxygen etCO2 2 Vincent Vincent for low 02 sats Nasal l/min Zeinab Arriola cannula RN RN 8:32:07 Heparin Flush added 2 Vincent Vincent used for Bag to bags Zeinab Arriola procedure (1000units/500ml field VARGAS RN NS) 8:32:17 Lidocaine 2% added 20ml Vincent Vincent for local to vial Zeinab Arriola anesthetic field VARGAS RN 8:56:06 Versed I.V. 2 mg Vincent Vincent for sedation Zeinab Arriola RN RN 8:56:18 Fentanyl I.V. Vincent Vincent for sedation Zeinab Arriola RN RN 9:04:52 Versed I.V. 2 mg Vincent Vincent for sedation Zeinab Arriola RN RN 9:05:00 Fentanyl I.V. 100 Vincent Vincent for sedation mcg Zeinab Arriola RN RN 9:09:16 Versed I.V. 2 mg Vincent Vincent for sedation Zeinab Arriola RN RN 9:14:38 Heparin Bolus I.V. 4000 Vincent Vincent for units Zeinab Arriola anticoagulation RN college basketball coach Log Time Note 8:06:10 Signed procedure consent form obtained from patient. 8:06:12 Diagnostic Cath status Elective 8:06:13 Time tracking: Regular hours (M-F 7:00 - 5:00) 8:06:18 Plan of Care:Hemodynamics will remain stable., Cardiac rhythm will remain stable., Comfort level will be maintained., Respiratory function will remain adequate., Patient/ family verbilizes understanding of procedure., Procedure tolerated without complication., Recovers from procedure without complications.. 8:07:31 Patient Weight : 194.01 lbs 8:09:45 Brandie Jeffery RT(R) sent for patient. Start room use. 8:19:26 Patient received from Pre/Post Procedure Room to CCL 3 Alert and oriented. Tansferred to table in Supine position. 8:19:28 Warm blankets applied, and pam hugger turned on for patient comfort. 8:19:28 Correct patient and procedure confirmed by team. 8:19:29 ECG and BP/O2 sat monitors applied to patient. 8:28:51 Vital chart was started 8:29:06 Rhythm: sinus rhythm 8:29:09 Baseline sample Acquired. 8:29:12 Full Disclosure recording started 8:29:16 H&P Date Dictated: 11/25/2018 Within 30 days and on chart., H&P Addendum completed by physician on day of procedure. (MUST COMPLETE FOR ALL OUTPATIENTS). 8:29:18 Pre-procedure instructions explained to patient. 8:29:22 Family in waiting room. 8:29:24 Patient NPO since Midnight. 8:29:30 Patient allergic to No known allergies 8:29:35 Is the patient allergic to Iodine/contrast media? No. 8:29:39 Was the patient premedicated? Yes 8:29:40 Is patient on blood thinner?Yes 8:29:42 Patient diabetic? No. 8:30:09 Previous problem with sedation/anesthesia? Yes blood pressure drops 8:30:11 Snore? Yes 8:30:12 Sleep apnea? Yes 8:31:27 Pre procedure: right dorsailis pedis pulse 1+ Palpable, but thready & weak; easily obliterated 8:31:34 Patient pain scale 0/10 ?. 8:31:43 IV patent on arrival in left forearm with 0.9% NaCl at KVO. 8:31:44 0.9% NaCl 100 ml/hr I.V. was administered by Vincent Arriola RN; Per physician; 8:31:56 Oxygen 2 l/min etCO2 Nasal cannula was administered by Vincent Arriola RN; for low 02 sats; 8:32:07 Heparin Flush Bag (1000units/500ml NS) 2 bags added to field was administered by Vincent Arriola RN; used for procedure; 8:32:17 Lidocaine 2% 20ml vial added to field was administered by Vincent Arriola RN; for local anesthetic; 8:34:08 Lab Result : BUN 20 mg/dl 8:34:08 Lab Result : Creatinine 0.7 mg/dl 8:34:08 Lab Result : Hemoglobin 13.9 g/dl 8:34:12 Lab results completed and on chart. 8:34:16 Right groin area was prepped with chlora-prep and draped in sterile fashion 8:34:17 Alarms reviewed by R. N. 8:34:18 Sharps counted by scrub and verified by RCobyN. 8:34:19 Physician paged 8:41:51 Use device set Femoral Dx 8:42:18 CHOICE PT Extra Support J 300cm guide wire ([id number]) opened to sterile field. 8:42:20 INFLATOR Merit BasixCompak (CP7688) opened to sterile field. 8:42:22 SHEATH 6FR [place] (MZM595) opened to sterile field. 8:42:24 Tegaderm 4 x 4 (1626W) opened to sterile field. 8:42:30 DIAGNOSTIC WIRE .035 260cm J wire (401938) opened to sterile field. 8:42:30 Medline Cath Pack ([id number]) opened to sterile field. 8:42:31 Bag Decanter () opened to sterile field. 8:42:32 ACIST Syringe (47043) opened to sterile field. 8:42:34 ACIST Hand Control (43446) opened to sterile field. 8:42:35 ACIST Manifold (32715) opened to sterile field. 8:42:36 DIAGNOSTIC Multipack 5Fr catheter set (KP6993) opened to sterile field. 8:54:30 Physician arrived 8:54:32 --------ALL STOP TIME OUT------ 8:54:32 Final Timeout: patient, procedure, and site verified with staff and physician. All members of the team are in agreement. 8:54:34 Right groin site verified by team. 8:54:40 Maximum allowable Isovue 300 dose 300ml. Physician notified. (300ml for normal creatinines. For patients with creatinine of 1.7 or higher multiply weight(kg) x 5 divided by creatinine.) 8:54:46 Fire Safety Assessment: A--An alcohol-based skin anteseptic being used preoperatively., C--Open oxygen or nitrous oxide is being used., D--An ESU, laser, or fiber-optic light is being used. 8:54:50 Physical assessment completed. ASA score P 2 - A patient with mild systemic disease as per Bulmaro Graf MD. 8:55:05 Sedation plan: IV Moderate Sedation Medication:Versed, Fentanyl 8:56:06 Versed 2 mg I.V. was administered by Vincent Arriola RN; for sedation; 8:56:18 Fentanyl I.V. was administered by Vincent Arriola RN; for sedation; 9:01:03 Procedure started. 9:01:08 Local anesthetic to right femoral artery with Lidocaine 2% by Bulmaro Graf MD.INITIAL ACCESS ONLY 9:04:10 NEEDLE Merit 18G 9cm Percutaneous Entry ([id number]) opened to sterile field. 9:04:52 Versed 2 mg I.V. was administered by Vincent Arriola RN; for sedation; 9:04:52 A 6 Fr Short sheath was inserted into the Right Femoral artery 9:05:00 Fentanyl 100 mcg I.V. was administered by Vincent Arriola RN; for sedation; 9:05:05 J wire advanced. 9:05:15 A MULTIPACK Pigtail 5 Fr catheter was advanced over the wire and used for Procedure. 9:05:41 LV angiography performed. 9:05:47 LV gram done using MONTES 9:06:50 EF : 30 % 9:06:53 Catheter removed. 9:07:15 GUIDE 6FR XBLAD 3.5 catheter ([id number]) opened to sterile field. 9:08:32 [place] Verrata Plus pressure wire (92623T) opened to sterile field. 9:09:16 Versed 2 mg I.V. was administered by Vincent Arriola RN; for sedation; 9:11:00 FFR/IFR wire advanced. 9:12:40 Wire advanced across lesion. 9:12:49 Baseline FFR .79. 9:13:04 mid LAD lesion measured at .79 with IFR 9:13:37 INFLATOR Merit BasixCompak (AC8835) opened to sterile field. 9:14:38 Heparin Bolus 4000 units I.V. was administered by Vincent Arriola RN; for anticoagulation; 9:15:28 Place stent Inflation Number: 1 A ADAMA RX 2.0 x 30 stent ([id number]) was prepped and advanced across the Mid LAD. The stent was deployed at 15 FREIDA for 0:08 (min:sec). 9:17:17 EXOSEAL 6Fr (EX600) opened to sterile field. 9:17:44 Sheath removed intact; hemostasis achieved with Exoseal to the Right Femoral artery. 9:17:47 Procedure ended.(Physican Out) 9:18:21 Fluoroscopy time 02.80 minutes. 9:18:27 Fluoroscopy dose: 225 mGy 9:18:27 Flurop Dose total: 225 9:18:35 Contrast amount:Isovue 300 48ml. 9:18:40 Sharps counted by scrub and verified by R.N. 9:18:42 Insertion/operative site no bleeding no hematoma. 9:18:49 Post right femoral artery:stable 9:18:52 Post Procedure Pulses reassessed and unchanged 9:18:57 Post-procedure physical assessment completed. ASA score P 2 - A patient with mild systemic disease as per Bulmaro Graf MD. 9:19:01 Post procedure rhythm: sinus rhythm 9:19:05 Estimated blood loss: 10 ml 9:19:07 Post procedure instruction explained to patient.Patient verbalizes understanding. 9:19:43 Procedure type changed to Cath procedure, Diagnostic procedure, LHC, C w/Coronaries, FFR/IVUS, FFR Initial, PCI procedure, Coronary Stent, Coronary Stent Initial 9:19:44 Procedure and supply charges have been captured, reviewed, submitted and are correct. 9:20:13 Procedure Complication : No complications 9:20:15 Vital chart was stopped 9:20:18 See physician's report for complete and final results. 9:20:20 Report given to Pre/Post Procedure Room. 9:20:23 Patient transfered to Pre/Post Procedure Room with Stretcher. 9:20:25 Procedure ended. 9:20:25 Full Disclosure recording stopped 9:20:31 End room use (Document Last) Intervention Summary Intervention Notes Time ActionType Lesion and Equipment Used Action# Pressure Duration Attributes 9:15:28 Place stent Mid LAD ADAMA RX 2.0 x 1 15 00:08 30 stent ([id number]) Device Usage Item Name Manufacture Quantity Catalog Number Hospital Part Current Minimal Lot# / Charge Number Stock Stock Serial# Code CHOICE PT [place] 1 [id number] 219692 379881 360888 5 Extra Support Scientific J 300cm guide wire ([id number]) INFLATOR Merit Merit 2 [id number] 632884 909409 889167 15 BasixCompak Medical (RN2614) SHEATH 6FR Terumo 1 [id number] 196685 052981 078422 40 [place] (QXF336) Tegaderm 4 x 4 3M 1 1626W 412978 905563 303764 5 (1626W) DIAGNOSTIC St Adam 1 836869 786090 851441 430227 30 WIRE .035 260cm J wire (243975) Medline Cath Medline 1 [id number] 730960 11095 267344 5 Pack ([id number]) Bag Decanter Microtek 1 2001S 861405 37868 041164 5 (2002S) Medical Inc. ACIST Syringe Acist 1 66336 914784 235133 791214 20 (31010) Medical Systems Inc ACIST Hand Acist 1 31174 056750 529040 450960 5 Control Medical (04809) Systems Inc ACIST Manifold Acist 1 52362 179516 706316 690800 5 (19777) Medical Systems Inc DIAGNOSTIC Cardinal 1 EL4711 204770 67176 278426 30 Multipack 5Fr Health catheter set (EV9422) NEEDLE Merit Merit 1 [id number] 908262 194418 970872 5 18G 9cm Medical Percutaneous Entry ([id number]) MULTIPACK Cardinal 1 035291 5 Pigtail 5 Fr Health catheter GUIDE 6FR Cardinal 1 [id number] 763139 445023 015105 10 XBLAD 3.5 Health catheter (35154547) Argonia Argonia 1 59938K 402132 312067398 583325 5 Verrata Plus pressure wire (30311J) ADAMA RX 2.0 x Medtronic 1 [id number] 312752 0252131 751778 5 [id number] 30 stent ([id number]) EXOSEAL 6Fr Cardinal 1 EX600 012246 157718 013956 10 (EX600) Health Signature Audit [place] Stage Time Signature Unsigned Intra-Procedure 11/25/2018 Brandie Jeffery 9:21:25 AM RT(R) Signatures Monitor : Brandie Jeffery Signature : RT Date : Time : [place] [id number] [place] [address]
[~2018-11-25 06:58] MED LIST changes: +LEVOFLOXACIN500 MG PO; +MEDROL DOSE PACK4 MG PO
[2018-11-25 07:33] VITALS: BP 134/68; Ht 160 cm; Wt 88.2 kg
[2018-11-25] MEDS ORDERED: KLONOPIN0.5 MG PO (07:37)
[2018-11-25 07:51] LABS: BASOPHILS 0.5 % (0-2); EOSINOPHILS 2.4 % (0-7); HEMOGLOBIN 13.9 g/dL (12-16); IMMATURE GRANULOCYTES 0.1 % (0-5); LYMPHOCYTES 39.2 % (15-50); MCH 33.2 pg (26.0-34.0); MCHC 33.9 g/dL (31.0-37.0); MCV 97.9 fL (80.0-100.0); MEAN PLATELET VOLUME 9.1 fL (7.4-10.4); MONOCYTES 12.2 % (2-11); NEUTROPHILS 45.6 % (40-80); PLATELET COUNT 270 10x3/uL (130-400); RBC 4.19 10x6/uL (4.00-5.40); RDW 12.9 % (11.5-14.5); WBC 7.4 10x3/uL (4.8-10.8)
[2018-11-25 08:05] LABS: CALC OSMOLALITY 281 mosm/kg (275-300); CALCIUM 8.9 mg/dL (8.5-10.1); CARBON DIOXIDE 26.6 mmol/L (21.0-32.0); CHLORIDE - SERUM 104 mmol/L (98-107); CREATININE - SERUM 0.7 mg/dL (0.6-1.3); GLUCOSE 109 mg/dL (74-106); POTASSIUM - SERUM 4.5 mmol/L (3.5-5.1); SODIUM 139 mmol/L (136-145); UREA NITROGEN 20 mg/dL (7-18); eGFR NON AFRICAN AMERICAN 90 mL/min (90-120)
--- NOTE | 2018-11-25 09:35 | NUR ---
PT ARRIVED BY STRETCHER. PLACED ON MONITORS. C/O BACK PAIN AND HEADACHE. WILL CALL FOR PAIN MEDICATION. ASSESSMENT COMPLETED. FAMILY AT BEDSIDE.
--- NOTE | 2018-11-25 09:50 | NUR ---
RIGHT GROIN DRESSING C/D/I. NO S/S OF HEMATOMA NOTED. VSS. FAMILY AT BEDSIDE.
[2018-11-25] MEDS ORDERED: BAYER CHEWABLE81 MG PO (09:56)
--- NOTE | 2018-11-25 10:20 | NUR ---
RIGHT GROIN DRESSING C/D/I. PT RESTING COMFORTABLY AT THIS TIME. VSS. NO S/S OF HEMATOMA NOTED. CALL LIGHT WITHIN REACH.
--- NOTE | 2018-11-25 10:50 | NUR ---
PT ALERT. GIVEN TURKEY SANDWICH AND DRINK PER REQUEST. STILL IN SUPINE POSITION, SO FAMILY AT BEDSIDE TO ASSIST HER. VSS. RIGHT GROIN DRESSING C/D/I. NO S/S OF HEMATOMA NOTED. REPORTS THAT PAIN HAS IMPROVED, BUT STILL HAS HEADACHE.
--- NOTE | 2018-11-25 11:20 | NUR ---
DR. CONRAD ROUNDED AND SPOKE WITH PT AND PT'S FAMILY. THEY VOICED UNDERSTANDING. VSS. RIGHT GROIN DRESSING C/D/I.
--- NOTE | 2018-11-25 11:44 | NUR ---
PT RESTING COMFORTABLY. VSS. RIGHT GROIN DRESSING C/D/I. NO S/S OF HEMATOMA NOTED. FAMILY AT BEDSIDE. CALL LIGHT WITHIN REACH.
--- NOTE | 2018-11-25 12:28 | NUR ---
PT'S HEAD OF BED INC TO 30 DEGREES. RIGHT GROIN DRESSING C/D/I. NO S/S OF HEMATOMA NOTED. VSS. FAMILY AT BEDSIDE.
--- NOTE | 2018-11-25 12:46 | NUR ---
PT C/O HEADACHE STILL. RATES IT A 12/12 AT THIS TIME. WILL GIVEN IBUPROFEN IF PT WANTS SINCE SHE HAS ALREADY HAD A NORCO .
--- NOTE | 2018-11-25 12:49 | NUR ---
PT OFFERED IBUPROFEN. SHE REFUSED. SAYS SHE WILL JUST TAKE SOMETHING WHEN SHE GETS HOME. VSS AT THIS TIME. RIGHT GROIN DRESSING C/D/I. NO S/S OF HEMATOMA NOTED. WILL CONTINUE TO MONITOR.
--- NOTE | 2018-11-25 13:07 | NUR ---
RIGHT ARM PIV D/C'D WITH CATH TIP INTACT. PT TOLERATED WELL. RIGHT GROIN DRESSING C/D/I. O2 SAT 96% ON ROOM AIR. PT INSTRUCTED TO GET UP AND DRESSED. FAMILY AT BEDSIDE TO ASSIST.
--- NOTE | 2018-11-25 13:10 | NUR ---
DISCUSSED DISCHARGE INSTRUCTIONS WITH PT AND PT'S FAMILY. THEY VOICED UNDERSTANDING.
--- NOTE | 2018-11-25 13:17 | NUR ---
PT TAKEN OUT TO VEHICLE BY WHEELCHAIR. NO S/S OF DISTRESS NOTED. ALL BELONGINGS AND PAPERWORK IN HAND.
--- NOTE | 2018-12-02 11:27 | OP ---
PATIENT NAME: PREMA SOLORIO MEDICAL RECORD: [id number] :53 LOCATION:D.[facility] ADMISSION DATE: SURGEON: KAHLIL CONRAD MD DATE OF OPERATION: 11/25/2018 PROCEDURES: 1. PTCA stent LAD. 2. IFR. 3. Left heart catheterization. 4. Selective coronary angiography. 5. Left ventriculogram. INDICATION: Angina and coronary artery disease. PROCEDURE IN DETAIL: After informed consent was obtained and after a detailed description of risks, benefits as well as alternative therapies, the patient elected to proceed with angiogram and angioplasty. The right femoral area was prepped and draped in normal sterile fashion. Right femoral artery was cannulated via modified Seldinger technique with placement of 6-Icelandic sheath. All catheters exchanged through this sheath. FINDINGS: The left ventriculogram was performed in standard 30-degree MONTES view, reveals good cardiac wall motion throughout all segments. Overall ejection fraction estimated 60%. SELECTIVE CORONARY ANGIOGRAPHY: 1. Right coronary artery is chronically totally occluded, fills via left to right collaterals. 2. The left circumflex has previously placed stents, these are widely patent with no significant disease. 3. The left anterior descending has 80% to 90% stenosis throughout the mid vessel. IFR is significantly abnormal. PTCA STENT OF THE LAD: The stent used was a 2.0 x 30 mm Braydon taken to 15 atmospheres. Result was 0% residual stenosis. OVERALL IMPRESSION: Successful percutaneous transluminal angioplasty stent of the left anterior descending going from 80% to 90% initial stenosis to 0% residual. TRANSINT:[id number] Voice Confirmation ID: [id number] DOCUMENT ID: [id number] KAHLIL CONRAD MD at 1127 CC: [id number] DICTATION DATE: 11/25/18 0921 POWER SHEAR OPERATOR: 11/25/18 1155 [facility] CLI 11/25/18 [place] [id number] [place] [id number]
== END 2018-11-25 13:17 | disposition home or self-care (01) ==
LOC: D.CATH 06:58
PROVIDERS: ATTEND Internal Medicine Interventional Cardiology
DX: I25.119 Atherosclerotic heart disease of native coronary artery with unspecified angina pectoris (principal); I25.82 Chronic total occlusion of coronary artery; Z95.5 Presence of coronary angioplasty implant and graft; Z01.812 Encounter for preprocedural laboratory examination

== ENCOUNTER → 2018-12-27 13:48 | Outpatient (CLI) | payer MEDICAID ==
[2018-11-25 07:33] VITALS: BMI 34.4
[~2018-12-27 13:48] MED LIST changes: +BAYER CHEWABLE81 MG PO; +KLONOPIN0.5 MG PO
--- NOTE | 2018-12-28 10:00 | EC ---
PATIENT:MICHELA SOLORIO DATE OF SERVICE: 12/27/18 SEX: F MEDICAL RECORD: [id number] DATE OF : 53 LOCATION:[facility] AGE OF PATIENT: 63 ADMISSION DATE: 12/27/18 REFERRING PHYSICIAN: INTERPRETING PHYSICIAN: KAHLIL GRAF MD ECHOCARDIOGRAM REPORT ECHO CHARGES 4 ECHO COMPLETE Date: 12/27/18 CLINICAL DIAGNOSIS: HAMMONDS H/O CAD ECHOCARDIOGRAPHIC MEASUREMENTS (adult normal given) AC root (d.<3.7cm) 2.5 cm LV Septum d (<1.2 cm> 1.1 cm Valve Excursion 1.2 cm LV Septum (systole) 1.6 cm Left Atria (s.<4.0cm> 4.5 cm LVPW d(<1.2cm) 1.0 cm RV (d.<2.3cm) 2.4 cm LVPW (sytole) 1.1 cm LV diastole(<5.6CM) 4.8 cm MV E-F(>70mm/sec) cm LV systole 3.8 cm LVOT Diameter 1.9 cm MV exc.(>10mm) cm Est.ejection fraction (50-75%) % DOPPLER: LVIT cm/sec A 48.0 cm/sec E 66.0 cm/sec LA cm/sec RVSP mmHg LVOT 110 cm/sec AOP1/2T m/s Asc. Ao 185 cm/sec RVOT 56.30cm/sec RA cm/sec PA 101 cm/sec AV Gradient Peak 14.0 mmHg AV Mean 6.3 mmHg AV Area 1.4 cm MV Gradient Peak 2.9 mmHg MV Mean 0.88 mmHg MV Area cm COMMENTS: OP - HC Medical Lab Specialist: Renan GUPTAOE Cause Analyst: 1 Dr. Graf TAPE# PACS Pericardial Effusion N DATE OF SERVICE: Echocardiogram FINDINGS: 1. Left ventricular chamber size is upper limits of normal, left ventricular systolic function is mildly depressed with global hypokinesis. Overall ejection fraction estimated at 40%. 2. Left atrium is enlarged at 4.5 cm. Right atrium and right ventricular chamber sizes are within normal limits. ECHOCARDIOGRAM REPORT [id number] MICHELA SOLORIO 3. Valvular structures have normal structure and motion. 4. Doppler interrogation reveals [id number] mitral regurgitation, no other valvular insufficiency or stenosis. 5. No evidence of pericardial effusion or left ventricular thrombus. TRANSINT:[id number] Voice Confirmation ID: [id number] DOCUMENT ID: [id number] KAHLIL GRAF MD at 1000 CC: [id number] DICTATION DATE: 12/27/18 1557 TRAY LINE WORKER: 12/28/18 0009 DEP CLI 12/27/18 [place] [id number] [place] [id number]
== END | disposition home or self-care (01) ==
LOC: D.HCCARDIO 13:48
PROVIDERS: ATTEND Internal Medicine Interventional Cardiology
DX: I25.10 Atherosclerotic heart disease of native coronary artery without angina pectoris (principal)

== ENCOUNTER 2019-03-15 16:28 | Emergency (ER) | payer MEDICAID ==
[~2019-03-15] VITALS: Ht 160 cm; Wt 91.4 kg
[2019-03-15 16:40] VITALS: Ht 160 cm; Wt 91.4 kg
--- NOTE | 2019-03-15 17:15 | NUR ---
PT IS A HIGH RISK PER ASSESSMENT. DR. MILES NOTIFIED AND SITTER ORDERED FOR SUICIDE RISK. SAFETY PLAN INITIATED. PT IN PAPERSCRUBS AND BELONGINGS TAKEN TO NURSES STATION. SITTER AT [facility] AT THIS TIME.
[2019-03-15 17:16] LABS: AMORPHOUS SEDIMENT <1+ /lpf (NONE SEEN); APPEARANCE HAZY (CLEAR); BACTERIA MANY /hpf (NONE SEEN); BILIRUBIN NEGATIVE (NEGATIVE); COLOR YELLOW (YELLOW); GLUCOSE NEGATIVE (NEGATIVE); HYALINE CAST 0-5 /lpf (NONE SEEN); KETONE NEGATIVE (NEGATIVE); MUCUS <1+ /lpf (NONE SEEN); NITRITE NEGATIVE (NEGATIVE); PROTEIN TRACE mg/dL (NEGATIVE); SPECIFIC GRAVITY 1.015 (1.005-1.020); UROBILINOGEN NORMAL (NORMAL)
[2019-03-15 17:27] LABS: BASOPHILS 0.6 % (0-2); EOSINOPHILS 1.5 % (0-7); HEMATOCRIT 40.5 % (36.0-48.0); HEMOGLOBIN 13.8 g/dL (12-16); IMMATURE GRANULOCYTES 0.1 % (0-5); LYMPHOCYTES 36.4 % (15-50); MCH 32.3 pg (26.0-34.0); MCHC 34.1 g/dL (31.0-37.0); MCV 94.8 fL (80.0-100.0); MEAN PLATELET VOLUME 8.9 fL (7.4-10.4); MONOCYTES 11.4 % (2-11); PLATELET COUNT 286 10x3/uL (130-400); RBC 4.27 10x6/uL (4.00-5.40); RDW 13.2 % (11.5-14.5); WBC 8.4 10x3/uL (4.8-10.8)
[2019-03-15 17:38] LABS: UDS - AMPHET NEGATIVE QUAL (NEGATIVE); UDS - BARB NEGATIVE QUAL (NEGATIVE); UDS - BENZO NEGATIVE QUAL (NEGATIVE); UDS - COCAINE NEGATIVE QUAL (NEGATIVE); UDS - OPIATE POSITIVE QUAL (NEGATIVE); UDS - PCP NEGATIVE QUAL (NEGATIVE); UDS - THC NEGATIVE QUAL (NEGATIVE)
[2019-03-15 17:40] LABS: ALBUMIN 3.5 g/dL (3.4-5.0); ANION GAP 10.3 mmol/L (8-16); BILIRUBIN - TOTAL 0.62 mg/dL (0.2-1.3); CALCIUM 8.5 mg/dL (8.5-10.1); CARBON DIOXIDE 30.2 mmol/L (21.0-32.0); POTASSIUM - SERUM 4.5 mmol/L (3.5-5.1)
[2019-03-15 22:37] VITALS: BP 156/80
== END 2019-03-16 02:15 ==
LOC: D.ER 16:28
PROVIDERS: Emergency Medicine
DX: R45.851 Suicidal ideations (principal)

== ENCOUNTER 2019-04-18 08:12 | Outpatient (CLI) | payer MEDICAID ==
[~2019-04-18] VITALS: Ht 160 cm; Wt 90.5 kg
--- NOTE | ~2019-04-18 | HEMODYNAMI ---
PATIENT:MICHELA SOLORIO MEDICAL RECORD: [id number] : 53 LOCATION:[facility] ADMISSION DATE: 04/18/19 Generatedon:04/18/201912:08 Patient name: MICHELA SLOORIO Patient #: [id number] SSN: : 1955 Date of study: 04/18/2019 Page: Of Hemodynamic Procedure Report Patient Data Patient Demographics Procedure consent was obtained First Name: MICHELA Gender: Female Last Name: OSMIN : 1955 Patient #: [id number] Age: 63 year(s) Race: Unknown Additional ID: [id number] Contact details Address: [address] [place] [address] [facility] State: [place] City: [facility] Zip code: [address] Past Medical History Allergies: No known allergies Admission Admission Data Admission Date: 04/18/2019 Admission Time: 8:12 Arrival Date: 04/18/2019 Arrival Time: 0:00 Admit Source: Other Insurance Payor: Medicaid Room #: [id number] [facility] #: [id number] Height (in.): 62.99 BSA: 1.93 (m2) Height (cm.): 160 BMI: 35.16 (kg/m2) Weight (lbs.): 198.42 Weight (kg.): 90 Lab Results Lab Result Date: 04/18/2019 Lab Result Time: 0:00 Biochemistry Name Units Result Min Max BUN mg/dl 10 --(-*--)-- 7 18 Creatinine mg/dl 0.7 --(*---)-- 0.6 1.3 eGFR ml/min 88.03375 -*(----)-- 90 120 NONAFRICAN CBC Name Units Result Min Max Hemoglobin g/dl 14.2 --(*---)-- 13.5 17.5 Procedure Procedure Types Cath Procedure Peripheral vascular Intervention Stent Stent Iliac w/plasty Initial Procedure Description Procedure Date Procedure Date: 04/18/2019 Procedure Start Time: 11:39 Procedure End Time: 12:07 Procedure Staff Name Function Bulmaro Graf MD Performing Physician Melinda Tran RT Scrub Miguelina Stanley RN Nurse Barb Hopper RT Monitor Denisse Carbone RT Monitor Procedure Data Cath Procedure Fluoroscopy Diagnostic fluoroscopy Total fluoroscopy Time: 0 time: 0 min min Diagnostic fluoroscopy Total fluoroscopy dose: 340 dose: 340 mGy mGy Contrast Material Contrast Material Type Amount (ml) Isovue 300 74 Entry Location Entry Primary Successful Side Size Upsize Upsize Entry Closure Succes sful Closure Location (Fr) 1 (Fr) 2 (Fr) Remarks Device Remarks Brachial Right 6 Fr Exoseal artery Short Estimated blood loss: 10 ml Diagnostic catheters Device Type Used For End Catheter Placement DIAGNOSTIC 3DRC 5Fr Procedure catheter ([id number]) Procedure Complications No complications Procedure Medications Medication Administration Route Dosage 0.9% NaCl I.V. 100 ml/hr Oxygen etCO2 Nasal cannula 2 l/min Lidocaine 2% added to field 20 Heparin Flush Bag added to field 2 bags (1000units/500ml NS) Versed I.V. 2 mg Fentanyl 100 mcg Versed I.V. 2 mg Fentanyl I.V. 50 mcg Fentanyl 50 mcg Versed I.V. 2 mg Heparin Bolus I.V. 4000 units Hemodynamics Rest BSA: 1.93 (m2) HGB: 14.2 (g/dl) O2 Consumption: Estimated: 177.84 (ml/min) O2 Co nsumption indexed: Estimated:92.15 (ml/min/m) Heart Rate: 66 (bpm) Snapshots Pre Cath Intra NCS Post Cath Vital Signs Time Heart Resp SPO2 etCO2 NIBP (mmHg) Rhythm Pain Sedation Rate (ipm) (%) (mmHg) Status Level (bpm) 11:13:04 66 17 99 21 169/80(111) NSR 0 (11) 10(A) , No pain 11:17:46 70 17 100 10.4 160/83(114) NSR 0 (11) 10(A) , No pain 11:22:45 71 16 98 19.4 Measuring NSR 0 (11) 10(A) , No pain 11:23:39 71 13 98 33.6 120/64(101) NSR 0 (11) 10(A) , No pain 11:28:05 71 15 98 24.7 124/56(91) NSR 0 (11) 10(A) , No pain 11:32:27 73 17 97 24.6 141/73(107) NSR 0 (11) 10(A) , No pain 11:36:49 72 14 98 30.6 133/68(104) NSR 0 (11) 10(A) , No pain 11:41:09 71 11 98 28.4 125/64(107) NSR 0 (11) 10(A) , No pain 11:45:25 71 11 98 23.9 126/65(92) NSR 0 (11) 9(A) , No pain 11:49:41 71 13 97 26.1 125/68(104) NSR 0 (11) 9(A) , No pain 11:54:06 73 14 98 30.8 130/65(99) NSR 0 (11) 9(A) , No pain 11:59:05 75 14 97 19.4 Measuring NSR 0 (11) 9(A) , No pain 11:59:19 76 13 98 27.6 133/75(111) NSR 0 (11) 10(A) , No pain 12:04:18 72 15 93 8.9 Measuring NSR 0 (11) 10(A) , No pain 12:04:37 72 13 95 11.2 126/72(110) NSR 0 (11) 10(A) , No pain Medications Time Medication Route Dose Verified Delivered Reason Notes Effectiveness by by 11:12:22 0.9% NaCl I.V. 100 Bulmaro Miguelina used for ml/hr Homar Stanley detailer school photographs 11:12:29 Oxygen etCO2 2 Bulmaro Miguelina used for Nasal l/min Homar Stanley procedure cannula RN 11:12:33 Lidocaine 2% added 20ml Bulmaro Bulmaro for local to vial Homar Graf MD anesthetic field 11:12:38 Heparin Flush added 2 Bulmaro Bulmaro used for Bag to bags Homar Graf MD procedure (1000units/500ml field NS) 11:24:03 Versed I.V. 2 mg Bulmaro Miguelina for sedation Homar Stanley RN 11:24:27 Fentanyl 100 Bulmaro Miguelina mcg Homar Stanley RN 11:29:09 Versed I.V. 2 mg Bulmaro Miguelina for sedation Homar Stanley RN 11:29:18 Fentanyl I.V. 50 Bulmaro Adornoyla for sedation mcg Homar Stanley RN 11:44:30 Fentanyl 50 Bulmaro Adornoyla mcg Homar Stanley RN 11:44:39 Versed I.V. 2 mg Bulmaro Mcintyre for sedation Homar Stanley RN 11:48:55 Heparin Bolus I.V. 4000 Bulmaro Mcintyre for verif ied units Homar Stanley anticoagulation with Dr. SAM Graf Procedure Log Time Note 10:58:32 Informed consent obtained and on chart 10:58:54 Procedure Status Elective Heart Cath (OP). 10:58:57 Time tracking: Regular hours (M-F 7:00 - 5:00) 10:59:00 Plan of Care:Hemodynamics will remain stable., Cardiac rhythm will remain stable., Comfort level will be maintained., Respiratory function will remain adequate., Patient/ family verbilizes understanding of procedure., Procedure tolerated without complication., Recovers from procedure without complications.. 10:59:03 Miguelina Stanley RN sent for patient. Start room use. 11:05:56 Lab Result : Creatinine 0.7 mg/dl 11:05:56 Lab Result : BUN 10 mg/dl 11:05:56 Lab Result : eGFR NONAFRICAN 88.43822 ml/min 11:05:56 Lab Result : Hemoglobin 14.2 g/dl 11:06:18 Patient received from Pre/Post Procedure Room to CCL 1 Alert and oriented. Tansferred to table in Supine position. 11:07:02 Patient Height : 62.99 inches 11:07:08 Patient Weight : 198.42 lbs 11:07:11 Admit Source: Other 11:07:50 Arrival Date: 04/18/2019 12:00:00 AM 11:08:06 Insurance Payor : Medicaid 11:09:18 Warm blankets applied, and pam hugger turned on for patient comfort. 11:09:19 Correct patient and procedure confirmed by team. 11:09:20 ECG and BP/O2 sat monitors applied to patient. 11:09:33 H&P Date Dictated: 04/18/2019 H&P Addendum completed by physician on day of procedure. (MUST COMPLETE FOR ALL OUTPATIENTS), New H&P dictated by physician.. 11:09:36 Pre-procedure instructions explained to patient. 11:09:37 Pre-op teaching completed and patient verbalized understanding. 11:11:31 Vital chart was started 11:11:32 Baseline sample Acquired. 11:11:37 Rhythm: sinus rhythm 11:12:22 0.9% NaCl 100 ml/hr I.V. was administered by Miguelina Stanley RN; used for procedure; Verbal order read back and verified. 11:12:29 Oxygen 2 l/min etCO2 Nasal cannula was administered by Miguelina Stanley RN; used for procedure; Verbal order read back and verified. 11:12:33 Lidocaine 2% 20ml vial added to field was administered by Bulmaro Graf MD; for local anesthetic; Verbal order read back and verified. 11:12:38 Heparin Flush Bag (1000units/500ml NS) 2 bags added to field was administered by Bulmaro Graf MD; used for procedure; Verbal order read back and verified. 11:13:58 Full Disclosure recording started 11:14:13 Is the patient allergic to Iodine/contrast media? No. 11:14:16 Is patient on blood thinner?Yes 11:14:26 ACC The patient was administered the following blood thiners within the last 24 hours: ACCPlavix 11:14:30 Patient diabetic? No. 11:14:35 Patient not . Patient is over age 55. 11:14:36 ----Pre-sedation anethsthesia assessment.---- 11:14:42 Previous problem with sedation/anesthesia? No ? 11:14:45 Snore? Yes 11:14:47 Sleep apnea? No 11:14:50 Deviated septum? No 11:14:53 Opens mouth fully? Yes 11:14:56 Sticks out tongue? Yes 11:14:59 Airway obstruction? No ? 11:15:05 Dentures? No ? 11:15:23 Family in waiting room. 11:15:27 Patient NPO since Midnight. 11:16:45 Patient allergic to No known allergies 11:17:02 Pre procedure: right dorsailis pedis pulse 2+ Normal; easily identifiable; not easily obliterated 11:17:07 Pre procedure: left dorsailis pedis pulse 2+ Normal; easily identifiable; not easily obliterated 11:17:18 Patient pain scale 0/10 ?. 11:17:26 IV patent on arrival in left forearm with 0.9% NaCl at [facility]. 11:17:31 Lab results completed and on chart. 11:17:42 Bilateral groins area was prepped with chlora-prep and draped in sterile fashion 11:17:44 Alarms reviewed by R. N. 11:17:45 Sharps counted by scrub and verified by R.N. 11:18:06 Use device set CATH PACK 11:18:08 ACIST Syringe (59703) opened to sterile field. 11:18:09 ACIST Hand Control (70508) opened to sterile field. 11:18:09 ACIST Manifold (58826) opened to sterile field. 11:18:10 Medline Cath Pack ([id number]) opened to sterile field. 11:18:11 Bag Decanter (2002S) opened to sterile field. 11:18:12 EMERALD Guide Wire (018-590) opened to sterile field. 11:18:28 SHEATH 5FR Sumerco (NNE675) opened to sterile field. 11:21:58 Zero performed for pressure channel P1 11:22:59 Physician arrived 11:23:00 --------ALL STOP TIME OUT------ 11:23:01 Final Timeout: patient, procedure, and site verified with staff and physician. All members of the team are in agreement. 11:23:05 Bilateral groins site verified by team. 11:23:25 Fire Safety Assessment: A--An alcohol-based skin anteseptic being used preoperatively., C--Open oxygen or nitrous oxide is being used., D--An ESU, laser, or fiber-optic light is being used. 11:23:31 Physical assessment completed. ASA score P 2 - A patient with mild systemic disease as per Bulmaro Graf MD. 11:23:39 2) 60-89 Mildly reduced kidney function, and other findings (as for stage 1) point to kidney disease. 11:24:01 Maximum allowable contrast dose (3.7 X eGFR X 0.75)247 ml. 11:24:03 Versed 2 mg I.V. was administered by Miguelina Stanley RN; for sedation; Verbal order read back and verified. 11:24:07 Sedation plan: IV Moderate Sedation Medication:Versed, Fentanyl 11:24:27 Fentanyl 100 mcg was administered by Miguelnia Stanley RN; ; Verbal order read back and verified. 11:25:43 Baseline sample Acquired. 11:29:09 Versed 2 mg I.V. was administered by Miguelina Stanley RN; for sedation; Verbal order read back and verified. 11:29:18 Fentanyl 50 mcg I.V. was administered by Miguelina Stanley RN; for sedation; Verbal order read back and verified. 11:34:51 [address] PREPPED PER DR. GRAF FOR A BRACHIAL APPROACH 11:36:28 SHEATH 6FR Sumerco (PPL069) opened to sterile field. 11:38:19 Procedure started. 11:38:53 Zero performed for pressure channel P1 11:39:36 Local anesthetic to right brachial artery with Lidocaine 2% by Bulmaro Graf MD.INITIAL ACCESS ONLY 11:40:45 A 6 Fr Short sheath was inserted into the Right Brachial artery 11:41:08 GLIDE WIRE Super Stiff Angled 260cm (UQ9358) opened to sterile field. 11:41:31 A DIAGNOSTIC 3DRC 5Fr catheter ([id number]) was advanced over the wire and used for Procedure. 11:42:02 TORQUE DEVICE PLASTIC .038 ( TD01) opened to sterile field. 11:42:14 A 6 FrFr 3DRC catheter was inserted over the wire. 11:42:53 GLIDEWIRE USED TO ADVANCE CATHETER. 11:43:18 TUBING High Pressure Extension Tubing (Hassan) ([id number]) opened to sterile field. 11:44:02 SHEATH 6FR Brite Tip 90cm (106878N) opened to sterile field. 11:44:12 Right leg runoff performed. 11:44:17 Left leg runoff performed. 11:44:30 Fentanyl 50 mcg was administered by Miguelina Stanley RN; ; Verbal order read back and verified. 11:44:39 Versed 2 mg I.V. was administered by Miguelina Stanley RN; for sedation; Verbal order read back and verified. 11:45:20 BRITE TIP 6 CZECH 90 CM SHEATH EXCHANGED FOR THE 6 CZECH SHORT SHEATH. 11:46:32 CHOICE PT Extra Support J 300cm guide wire ([id number]) opened to sterile field. 11:46:49 INFLATOR Merit BasixCompak (QF1555) opened to sterile field. 11:47:38 CHOICE EXTRA 300 ADVANCED INTO THE LT LEG. 11:48:30 WIRE ADVANCED ACROSS THE LESION. 11:48:55 Heparin Bolus 4000 units I.V. was administered by Miguelina Stanley RN; for anticoagulation; verified with Dr. Graf Verbal order read back and verified. 11:53:50 Place stent Inflation Number: 1 A DENISE 8 x 29 x 135 stent ([id number]) was prepped and advanced across the Proximal Common Iliac, Left . The stent was deployed at 9 FREIDA for 0:10 (min:sec) . 11:54:30 Balloon removed over the wire. 11:56:10 CHOICE EXTRA SUPPORT WIRE REMOVED. 11:56:43 90 CM SHEATH EXCHANGED FOR THE SHORT 6 CZECH SHEATH. 11:57:57 EXOSEAL 6Fr (EX600) opened to sterile field. 11:58:39 Sheath removed intact; hemostasis achieved with Exoseal to the Right Brachial artery. 11:58:43 Procedure ended.(Physican Out) 11:59:36 Contrast amount:Isovue 300 74ml. 11:59:52 Fluoroscopy time 00.00 minutes. 12:00:05 Fluoroscopy dose: 340 mGy 12:00:05 Flurop Dose total: 340 12:00:15 Dose Area Product 82919 mGy/cm. 12:00:19 Maximum allowable dose exceeded? No. 12:00:31 ACT drawn and resulted at 252 seconds. (normal therapeutic range 180-240 seconds). 12:00:38 Sharps counted by scrub and verified by R.N. 12:00:46 Insertion/operative site no bleeding no hematoma. 12:00:55 Post-op/insertion site Right Brachial artery dressed using a 4 x 4 and Tegaderm. 12:01:01 Post right brachial artery:stable 12:01:46 Post Procedure Pulses reassessed and unchanged 12:02:20 Post-procedure physical assessment completed. ASA score P 2 - A patient with mild systemic disease as per Bulmaro Graf MD. 12:02:24 Post procedure rhythm: unchanged. 12:02:28 Estimated blood loss: 10 ml 12:02:31 Post procedure instruction explained to patient.Patient verbalizes understanding. 12:02:32 Patient needs reinforcement of post procedure teaching. 12:03:09 Procedure type changed to Cath procedure, Peripheral vascular Intervention, Stent, Stent Iliac w/plasty Initial 12:03:34 Procedure and supply charges have been captured, reviewed, submitted and are correct. 12:06:31 Procedure Complication : No complications 12:06:38 Vital chart was stopped 12:06:47 AFRO Findings: PVD: APPAREL DESIGNER performed (see procedure notes) 12:06:49 Operative report dictated upon procedure completion. 12:06:50 See physician's report for complete and final results. 12:06:53 Report given to Pre/Post Procedure Room. 12:06:58 Patient transfered to Pre/Post Procedure Room with Stretcher. 12:07:01 Procedure ended. 12:07:01 Full Disclosure recording stopped 12:07:20 ACC-PCI Only Patient was given prescriptions, or instructed by Bulmaro Graf MD to start/continue the following medications upon discharge: Plavix 12:07:22 End room use (Document Last) 12:07:41 End room use (Document Last) Intervention Summary Intervention Notes Time ActionType Lesion and Equipment Action# Pressure Duration Attributes Used 11:53:50 Place stent Proximal DENISE 8 x 1 9 00:10 Common 29 x 135 Iliac, Left stent ([id number]) Device Usage Item Name Manufacture Quantity Catalog Number Hospital Part Current Minim al Lot# / Charge Number Stock Stock Serial# Code ACIST Acist 1 99704 347937 910329 828754 20 Syringe Medical (92156) Systems Inc ACIST Hand Acist 1 32882 252052 685587 648066 5 Control Medical (65484) Systems Inc ACIST Acist 1 09993 735307 950671 265357 5 Manifold Medical (84140) Systems Inc Medline Medline 1 [id number] 913166 34628 352661 5 Cath Pack ([id number]) Bag Microtek 1 647036 51150 425045 5 Decanter Medical Inc. () EMERALD Cardinal 1 502-455 807163 957008 360845 5 Guide Wire Health (502-455) SHEATH 5FR Terumo 1 DOY501 464155 428645 870307 5 Sumerco (OPN346) SHEATH 6FR Terumo 1 LVL923 712577 218712 788498 40 Sumerco (WHO337) GLIDE WIRE Terumo 1 VB6872 703005 689048 810599 5 Super Stiff Angled 260cm (OY9829) DIAGNOSTIC Cardinal 1 [id number] 736707 555574 091450 9 3DRC 5Fr Health catheter (258904E) TORQUE [place] 1 TD01 936146 129392 109503 5 DEVICE Scientific PLASTIC .038 ( TD01) TUBING High Merit 1 [id number] 066847 70366 675483 10 Pressure Medical Extension Tubing (Hassan) (BP7889I) SHEATH 6FR Cardinal 1 401-690M 589955 970391 880229 5 Brite Tip Health 90cm (816009F) CHOICE PT [place] 1 [id number] 68948820190103 936081 5 Extra Scientific Support J 300cm guide wire ([id number]) INFLATOR Merit 1 BQ1044 419536 101172 397484 15 Merit Medical BasixCompak (WL1967) DENISE 8 x Cardinal 1 [id number] 483290 328989 989133 5 29 x 135 Health stent ([id number]) EXOSEAL 6Fr Cardinal 1 EX600 919493 678982 081657 10 (EX600) Health Signature Audit Dickens Stage Time Signature Unsigned Intra-Procedure 04/18/2019 Denisse 12:07:41 PM Raf RT(R) (CV) Intra-Procedure 04/18/2019 Miguelina Stanley 12:08:24 PM RN Intra-Procedure 04/18/2019 Bulmaro Graf 12:08:52 PM [id number] [place] [address]
[2019-04-18] MEDS ORDERED: ALBUTEROL SULF8.5 GM INH (09:23)
[2019-04-18] MEDS ORDERED: METOPROLOL TART25 MG PO (09:24)
[2019-04-18 09:37] VITALS: BP 122/78; Ht 160 cm; Wt 90.5 kg
[2019-04-18 09:46] LABS: HEMATOCRIT 42.6 % (36.0-48.0); HEMOGLOBIN 14.2 g/dL (12-16); IMMATURE GRANULOCYTES 0.1 % (0-5); LYMPHOCYTES 32.9 % (15-50); MCH 32.8 pg (26.0-34.0); MCHC 33.3 g/dL (31.0-37.0); MCV 98.4 fL (80.0-100.0); MEAN PLATELET VOLUME 9.3 fL (7.4-10.4); MONOCYTES 12.7 % (2-11); NEUTROPHILS 51.3 % (40-80); PLATELET COUNT 322 10x3/uL (130-400); RBC 4.33 10x6/uL (4.00-5.40); RDW 13.6 % (11.5-14.5)
[2019-04-18 10:01] LABS: CALC OSMOLALITY 271 mosm/kg (275-300); CALCIUM 8.5 mg/dL (8.5-10.1); CARBON DIOXIDE 27.9 mmol/L (21.0-32.0); CHLORIDE - SERUM 102 mmol/L (98-107); CREATININE - SERUM 0.7 mg/dL (0.6-1.3); GLUCOSE 110 mg/dL (74-106); POTASSIUM - SERUM 4.7 mmol/L (3.5-5.1); SODIUM 136 mmol/L (136-145); UREA NITROGEN 10 mg/dL (7-18); eGFR NON AFRICAN AMERICAN 89 mL/min (90-120)
--- NOTE | 2019-04-18 12:15 | NUR ---
PT ARRIVED BY STRETCHER. PLACED ON MONITORS. FRIEND AT BEDSIDE. CALL LIGHT WITHIN REACH. ASSESSMENT COMPLETED.
--- NOTE | 2019-04-18 12:30 | NUR ---
PT C/O PAIN TO RIGHT ARM. RATES IT 03/14. REPOSITIONED ON PILLOW. CAP REFILL < 3 SECS AND PPP. RIGHT BRACHIAL BAND IN PLACE. HEMATOMA STABLE AT THIS TIME.
[2019-04-18] MEDS ORDERED: PRAVACHOL20 MG PO (12:33)
--- NOTE | 2019-04-18 12:45 | NUR ---
DR. CONRAD AT BEDSIDE. ORDERS RECEIVED FOR NORCO FOR PT'S C/O RIGHT ARM PAIN.
--- NOTE | 2019-04-18 13:15 | NUR ---
PT SITTING UP IN BED. TOLERATING SIPS OF WATER. DENIES NAUSEA. RIGHT ARM BRACHIAL BAND IN PLACE. NO BLEEDING NOTED. HEMATOMA STABLE.
--- NOTE | 2019-04-18 13:30 | NUR ---
TYRONE AT BEDSIDE AND CHECKING ON RIGHT ARM. MASSAGED HEMATOMA MORE TO SOFTEN. PT TOLERATED WELL.
--- NOTE | 2019-04-18 13:48 | NUR ---
PT RESTING MORE COMFORTABLY. RATES PAIN 5/10 TO RIGHT ARM AT THIS TIME. RIGHT ARM BAND STABLE. NO BLEEDING NOTED. HEMATOMA STABLE AND SOFT AT THIS TIME. CAP REFILL TO RIGHT HAND < 3 SECS AND PPP.
--- NOTE | 2019-04-18 14:22 | NUR ---
PT REPORTS PAIN IS NOW A 4/10 IN RIGHT ARM. FEELING BETTER. SET UP WITH SANDWICH TRAY. 4CC OF AIR REMOVED FROM BRACHIAL BAND. TOLERATING WELL. NO NEW BLEEDING/HEMATOMA NOTED AT THIS TIME. CALL LIGHT WITHIN REACH.
--- NOTE | 2019-04-18 14:39 | NUR ---
4cc OF AIR REMOVED FROM BRACHIAL ARM BAND. TOLERATING WELL. NO NEW BLEEDING/HEMATOMA NOTED. CALL LIGHT WITHIN REACH. PT ATE SANDWICH AND DRINKING COFFEE. DENIES NAUSEA. NO NEEDS AT THIS TIME.
--- NOTE | 2019-04-18 14:55 | NUR ---
4cc OF AIR REMOVED FROM BRACHIAL BAND. NO BLEEDING/HEMATOMA NOTED. NO PRESSURE ON ARM AT THIS TIME. IF CONTINUES TO BE STABLE, WILL PLACE DRESSING AND CONTINUE TO MONITOR.
--- NOTE | 2019-04-18 15:10 | NUR ---
BAND REMOVED AND DRESSING APPLIED TO RIGHT UPPER ARM. NO BLEEDING/HEMATOMA NOTED.
--- NOTE | 2019-04-18 15:30 | NUR ---
PIV D/C'D WITH CATH TIP INTACT. TOLERATED WELL. RIGHT UPPER ARM DRESSING C/D/I. NO S/S OF HEMATOMA NOTED. CALL LIGHT WITHIN REACH. FAMILY NOTIFIED OF DISCHARGE TIME BY PHONE.
--- NOTE | 2019-04-18 16:00 | NUR ---
DISCUSSED DISCHARGE INSTRUCTIONS WITH PT. SHE VOICED UNDERSTANDING. RIGHT UPPER ARM DRESSING C/D/I. NO S/S OF HEMATOMA NOTED. PT TAKEN OUT TO VEHICLE BY WHEELCHAIR. NO S/S OF DISTRESS NOTED. ALL BELONGINGS AND PAPERWORK IN HAND.
--- NOTE | 2019-04-21 13:28 | OP ---
PATIENT NAME: MICHELA SOLORIO MEDICAL RECORD: [id number] :53 LOCATION:D.CAT ADMISSION DATE: SURGEON: KAHLIL CONRAD MD DATE OF OPERATION: 04/18/2019 PROCEDURES: 1. TIE CUTTER stent, left iliac. 2. Aortofemoral runoff. 3. Abdominal aortography. INDICATION: Claudication and peripheral vascular disease. PROCEDURE IN DETAIL: After informed consent was obtained and after a detailed description of the risks, benefits as well as alternative therapies, the patient elected to proceed with angiogram and angioplasty. The right brachial area was prepped and draped in normal sterile fashion. Right brachial artery was cannulated via modified Seldinger technique with placement of 6-New Zealander sheath. All catheters exchanged through this sheath. FINDINGS: The abdominal aortography was performed. The catheter was advanced for aortofemoral runoff. Abdominal aortography reveals no significant abdominal aortic disease, no dissection or aneurysm formation. RIGHT LEG: A. Iliac: The common internal and external iliacs have mild irregularities, but no flow-limiting stenosis. B. Femoral system: The common superficial and deep femoral have mild irregularities, but no flow-limiting stenosis. C. Popliteal and infrapopliteal vessels are patent with decent 3-vessel runoff to the foot. LEFT LEG: A. In 2017, there was total occlusion of the left iliac. We attempted to traverse this. It is now patent. There is a channel; however, greater than 80% stenosis at the proximal aspect. The remainder of the iliacs have only mild irregularities. B. Femoral system: The common superficial and deep femoral have mild irregularities, but no flow-limiting stenosis. C. Popliteal and infrapopliteal vessels are patent with good 3-vessel runoff to the foot. TIE CUTTER STENT OF THE LEFT COMMON ILIAC: The stent used was an 8 x 29 Lela stent. Result was 0% residual stenosis. OVERALL IMPRESSION: Successful percutaneous transluminal angioplasty stent of the left common iliac going from 80% initial stenosis to 0% residual. TRANSINT:[id number] Voice Confirmation ID: [id number] DOCUMENT ID: [id number] OPERATIVE REPORT [id number] OSMINMICHELA KAHLIL CONRAD MD at 1320 CC: [id number] DICTATION DATE: 04/18/19 1202 PERINATAL NURSE: 04/18/19 1225 DEP CLI 04/18/19 [facility] [address] [place] [address]
== END 2019-04-18 16:00 | disposition home or self-care (01) ==
LOC: D.CATH 08:12 → D.CLR 08:45 → D.CATH 11:00
PROVIDERS: ATTEND Internal Medicine Interventional Cardiology
DX: I70.202 Unspecified atherosclerosis of native arteries of extremities, left leg (principal)

== ENCOUNTER 2019-04-19 04:34 | Inpatient (IN) | payer MEDICAID ==
[~2019-04-19] VITALS: Ht 160 cm; Wt 90.5 kg
[~2019-04-19 04:34] MED LIST changes: +ALBUTEROL SULF8.5 GM INH; +METOPROLOL TART25 MG PO; +PRAVACHOL20 MG PO
[2019-04-19 05:33] LABS: HEMATOCRIT 39.5 % (36.0-48.0); LYMPHOCYTES 23.8 % (15-50); MCH 32.3 pg (26.0-34.0); MCHC 32.9 g/dL (31.0-37.0); MEAN PLATELET VOLUME 8.9 fL (7.4-10.4); NEUTROPHILS 63.3 % (40-80); RBC 4.03 10x6/uL (4.00-5.40); RDW 13.4 % (11.5-14.5); WBC 8.3 10x3/uL (4.8-10.8)
[2019-04-19 05:34] LABS: PLATELET COUNT 256 10x3/uL (130-400)
[2019-04-19 05:52] LABS: ALBUMIN 3.2 g/dL (3.4-5.0); ALKALINE PHOSPHATASE 77 U/L (46-116); ALT (SGPT) 22 U/L (10-68); BILIRUBIN - TOTAL 0.37 mg/dL (0.2-1.3); CALC OSMOLALITY 281 mosm/kg (275-300); CALCIUM 8.3 mg/dL (8.5-10.1); CHLORIDE - SERUM 104 mmol/L (98-107); CREATININE - SERUM 0.8 mg/dL (0.6-1.3); GLUCOSE 140 mg/dL (74-106); POTASSIUM - SERUM 4.7 mmol/L (3.5-5.1); PROTEIN - SERUM 7.2 g/dL (6.4-8.2); SODIUM 139 mmol/L (136-145); eGFR NON AFRICAN AMERICAN 76 mL/min (90-120)
[2019-04-19 05:53] LABS: UREA NITROGEN 17 mg/dL (7-18)
[2019-04-19 06:02] LABS: INR 0.93 (0.85-1.17)
--- NOTE | 2019-04-19 08:06 | NUR ---
RECEIVED PT TO ROOM 2103 VIA WHEELCHAIR, PT ABLE TO ABMULATE FROM WHEELCHAIR TO BED WITH STEADY GATE. PT A/O X4, RESP EVEN AND NONLABORED ON RA. RATES PAIN LEVEL OF 10/10. ORIENTED PT TO ROOM AND CALL LIGHT, WILL ASSESS PT AND START PLAN OF CARE.
[2019-04-19 09:34] VITALS: BP 133/75; Ht 160 cm; Wt 90.5 kg
[2019-04-19 09:49] VITALS: BP 136/73
--- NOTE | 2019-04-19 10:14 | NUR ---
PT RESTING COMFORTABLY IN BED, WITH EYES CLOSED. FAMILY AT BEDSIDE, CALL LIGHT IN REACH, NAD NOTED,W ILL CONTINUE TO MONITOR.
[2019-04-19 14:02] VITALS: BP 109/46
--- NOTE | 2019-04-19 16:10 | NUR ---
CONSENTS SINGED BY PT AND PLACED ON CHART. PRE- OP MEDS GIVEN AT THIS TIME. PT RESTING COMFORTABLY IN BED, DENIES ANY NEEDS AT THIS TIME. CALL LIGHT IN REACH, NAD NOTED.
[2019-04-19 17:43] VITALS: BP 92/53
[2019-04-19 20:00] VITALS: BP 109/57
--- NOTE | 2019-04-19 22:46 | NUR ---
2245 MEETS ANESTHESIA DISCHARGE CRITERIA
[2019-04-19 23:04] VITALS: BP 96/40
--- NOTE | 2019-04-19 23:10 | NUR ---
RETURNED TO ROOM FROM RR.AROUSES TO VERBAL STIMULI. RESP EVEN AND UNALBORED. O2 @ 3L PER NC ON.DRESSING TO RFA INTACT WITHOUT DRAINAGE NOTED. NEIL DRAIN INTACT AND COMPRESSED. SR UP X 2. CL IN REACH. FAMILY AT BEDSIDE.
[2019-04-20 04:00] VITALS: BP 107/49
[2019-04-20 05:10] LABS: BASOPHILS 0.2 % (0-2); EOSINOPHILS 0.6 % (0-7); HEMATOCRIT 35.3 % (36.0-48.0); HEMOGLOBIN 10.9 g/dL (12-16); IMMATURE GRANULOCYTES 0.2 % (0-5); LYMPHOCYTES 27.4 % (15-50); MCH 32.1 pg (26.0-34.0); MCHC 30.9 g/dL (31.0-37.0); MEAN PLATELET VOLUME 9.3 fL (7.4-10.4); MONOCYTES 13.3 % (2-11); NEUTROPHILS 58.3 % (40-80); PLATELET COUNT 273 10x3/uL (130-400); RDW 14.7 % (11.5-14.5); WBC 8.6 10x3/uL (4.8-10.8)
[2019-04-20 05:31] LABS: ANION GAP 8.8 mmol/L (8-16); CALCIUM 7.8 mg/dL (8.5-10.1); CARBON DIOXIDE 29.9 mmol/L (21.0-32.0); CREATININE - SERUM 0.9 mg/dL (0.6-1.3); MAGNESIUM - SERUM 1.8 mg/dL (1.8-2.4); POTASSIUM - SERUM 4.7 mmol/L (3.5-5.1)
[2019-04-20 05:44] LABS: MCV 103.8 fL (80.0-100.0)
--- NOTE | 2019-04-20 06:53 | NUR ---
REPORT RECEIVED. ALERT AND AWAKE. MORPHINE DAIRY WORKER IN PLACE NEIL DRAIN INTACT TO RIGHT ARM AND DRESSING IS D/I WITH CAP REFILL WNL TO FINGERS. O2 ON AT 3 L/M PER N/C. CAREPLAN REVIEW DONE WITH SAFETY PRECAUTIONS IN PLACE. BED IN LOWEST POSITION AND LOCKED. STATES HER ARM IS HURTING ON AND OFF BUT UNDERSTANDS HOW TO USE DAIRY WORKER CONTROL. LEFT A/C IV SITE IS CLEAR. CL IN REACH
[2019-04-20 08:30] VITALS: BP 96/59
[2019-04-20 12:30] VITALS: BP 108/44
--- NOTE | 2019-04-20 14:30 | NUR ---
NO C/O PAIN VOICED. SHE IS OFF OF CERTIFIED GENETIC COUNSELOR PUMP. I TRIED TO DECREASE O2 DOWN TO 2 L/M BUT O2 SAT WENT DOWN TO 86% SO IT WAS INCREASED TO 3L WITH O2 SAT OF 94%. CL IN REACH. NEIL DRAIN INTACT AND DRESSING D/I TO RIGHT ARM.
[2019-04-20 16:37] VITALS: BP 97/46
--- NOTE | 2019-04-20 19:15 | NUR ---
EVENING ROUNDS COMPLETE. PT SITTING UP IN BED ASLEEP. EASY TO AROUSE. NO SIGNS OF DISTRESS. PT DENIES ANY NEEDS AT THIS TIME. CL IN REACH, BED IN LOWEST POSITION
[2019-04-20 20:00] VITALS: BP 152/121
--- NOTE | 2019-04-20 21:40 | NUR ---
CHANGED PT DRESSING TO RIGHT ARM, PER PT REQUEST. PT TOLERATED WELL.
[2019-04-21] VITALS: BP 102/68
[2019-04-21 04:00] VITALS: BP 106/38
[2019-04-21 05:05] LABS: BASOPHILS 0.3 % (0-2); EOSINOPHILS 0.4 % (0-7); HEMATOCRIT 32.8 % (36.0-48.0); HEMOGLOBIN 10.2 g/dL (12-16); IMMATURE GRANULOCYTES 0.3 % (0-5); LYMPHOCYTES 22.7 % (15-50); MCHC 31.1 g/dL (31.0-37.0); MCV 102.8 fL (80.0-100.0); MEAN PLATELET VOLUME 9.2 fL (7.4-10.4); MONOCYTES 16.7 % (2-11); NEUTROPHILS 59.6 % (40-80); PLATELET COUNT 260 10x3/uL (130-400); RBC 3.19 10x6/uL (4.00-5.40); RDW 13.9 % (11.5-14.5)
[2019-04-21 05:09] LABS: CALC OSMOLALITY 270 mosm/kg (275-300); CALCIUM 8.1 mg/dL (8.5-10.1); CARBON DIOXIDE 33.4 mmol/L (21.0-32.0); CHLORIDE - SERUM 100 mmol/L (98-107); CREATININE - SERUM 0.8 mg/dL (0.6-1.3); GLUCOSE 125 mg/dL (74-106); POTASSIUM - SERUM 4.7 mmol/L (3.5-5.1); SODIUM 135 mmol/L (136-145); UREA NITROGEN 13 mg/dL (7-18); eGFR NON AFRICAN AMERICAN 76 mL/min (90-120)
[2019-04-21 05:16] LABS: WBC 11.3 10x3/uL (4.8-10.8)
--- NOTE | 2019-04-21 06:58 | NUR ---
REPORT RECEIVED. SHE IS SITTING UP IN BED WITH AT BEDSIDE, ALERT AND ORIENT ABLE TO VOICE NEEDS. DRESSING D/I TO RIGHT ARM WITH NEIL DRAIN INTACT. FINGERS WARM WITH GOOD CAP REFILL. SALINE LOCK TO LEFT A/C. RESP EVEN WITHOUT LABOR. O2 SAT IS 98% ON R/A. BED IS LOCKED AND IN LOWEST POSITION. CAREPLAN REVIEW DONE WITH SAFETY PRECAUTIONS IN PLACE
--- NOTE | 2019-04-21 07:04 | NUR ---
NEIL DRAIN OUTPUT OF 10ML
--- NOTE | 2019-04-21 08:55 | OP ---
PATIENT NAME: MICHELA SOLORIO MEDICAL RECORD: [id number] :53 LOCATION:D.M2 D.2104 ADMISSION DATE:04/19/19 SURGEON: NOAM NORTON MD DATE OF OPERATION: 04/19/2019 PREOPERATIVE DIAGNOSES: 1. Brachial artery pseudoaneurysm. 2. 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 POSTOPERATIVE DIAGNOSES: 1. Pseudoaneurysm of the right brachial artery. 2. No evidence of an acquired arteriovenous fistula. PROCEDURES: 1. Open repair of pseudoaneurysm of the right brachial artery. 2. Nonselective right brachial arteriogram with immediate surgeon interpretation of the images. SURGEON: Noam Norton MD SENIOR IT AUDITOR: None. BLOOD LOSS: 200 cc. ANESTHESIA: General. DRAINS: Times 1 (10-Danish closed suction drainage system). The risks, possible complications and alternatives to the procedure were explained to the patient. She elects to proceed. The discussion specifically included, but was not limited to, bleeding requiring emergency reoperation, infection, limb loss, embolic problems, and nerve injury. OPERATIVE COURSE: The patient was conveyed to the operating room urgently on 04/19/2019. General anesthesia was induced by the anesthesia staff. The right upper extremity was abducted at 90 degrees to the patient's trunk. I began my incision on the proximal aspect of the volar surface of the forearm. An axial incision was accomplished here and then I gently created an S-shaped extension onto the medial aspect of the right distal arm. I then inflated the tourniquet. I dissected down to the brachial artery just distal to the cubital fossa. This was encircled with vessel loops. I then continued my dissection proximally. I identified the brachial artery in the arm and this was encircled with vessel loops as well. I evacuated some clot. I tied off some surrounding veins in order to have better access to the brachial artery. I noted the puncture site on the brachial artery. I then came down on the tourniquet and there was arterial spurting out through the puncture site. We then went back up on the tourniquet. I inserted an Angiocath into the brachial artery. Under fluoroscopy a cine arteriogram was obtained. This revealed an unobstructed flow down the brachial artery into radial and ulnar branches as well as an intramuscular branch. I noted no evidence of emboli. OPERATIVE REPORT [id number] MICHELA SOLORIO The Angiocath was removed. No radiologist was present for this procedure. Cine images were obtained and are kept in the PACS system. The surgeon interpretation of the radiographic images is dictated within the body of this operative note. I then ran a #3 Mark up the brachial artery and pulled back. There was no production of clots. Inflow was good. Backflow was good as well. I then closed the defect on the anterior surface of the brachial artery with multiple interrupted 7-0 Prolene sutures. I then released control on the brachial artery proximal and distally. There could be a Doppler signal heard distal to the repair. Additionally, the patient had a Doppler signal at the right radial and ulnar arteries at the wrist. There was also a nice radial artery pulse at the wrist. I irrigated with normal saline. A 10-Danish round fully fluted closed suction drain was brought out through a stab incision. This was sutured to skin with a 2-0 nylon. The subdermis was approximated with interrupted 3-0 Vicryls. The skin was approximated with multiple interrupted horizontal mattress 3-0 nylons. A sterile dressing was applied. The patient was then extubated and conveyed to post-anesthesia care unit where she was in stable condition. In the recovery room, she had good function and flexion and extension of the right wrist. Good hand director gift on the right. Good supination and pronation of the wrist on the right. TRANSINT:[id number] Voice Confirmation ID: [id number] DOCUMENT ID: [id number] NOAM NORTON MD at 0855 CC: ELIEL CLEMENTE and JOEY RUIZ [id number] DICTATION DATE: 04/20/192305 KEYMODULE ASSEMBLY SUPERVISOR: 04/21/19 0209 ADM IN [facility] [address] [id number]
--- NOTE | 2019-04-21 09:15 | NUR ---
NEIL DRAIN WAS D/C IN RIGHT ARM. DRESSING WAS APPLIED TO SITE, DRESSING TO RIGHT ARM WAS REPLACED. JAMESON WELL
[2019-04-21 09:59] VITALS: BP 93/47
--- NOTE | 2019-04-21 12:30 | NUR ---
MINIMAL BLEEDING NOTED FROM ARM, MORE GUAZE AND KERLIX APPLIED, SHE DENIES ANY OTHER NEEDS AT THIS TIME
--- NOTE | 2019-04-21 14:03 | NUR ---
UPON ADMIT PATIENT REPORTS TO RECEIVING A FLU SHOT, NO FLU SHOT GIVEN AT DISCHARGE.
[2019-04-21] MEDS ORDERED: PLAVIX75 MG PO (14:13)
--- NOTE | 2019-04-21 15:00 | NUR ---
SALINE LOCK WAS D/C BY SN. SHE LEFT VIA W/C BEFORE SIGNING OR REVIEWING D/C PAPERWORK. I ATTEMPTED TWICE TO CALL PHONE NUMBERS LISTED BUT NO ANSWER. WILL CONTINUE TO ATTEMPT TO CALL AND WILL SEND D/C PAPERWORK IN THE MAIL.
[2019-04-21 15:09] VITALS: BP 105/47
--- NOTE | 2019-04-21 15:30 | MORECARE ---
CASE MANAGEMENT DISCHARGE SUMMARY PATIENT: MICHELA SOLORIO UNIT: [id number] ADM DATE: 04/19/19 AGE: 63 : 54 SEX: F ROOM/BED: D.2104 AUTHOR: SHERYL RICHARDSON PHYSICIAN: REFERRING PHYSICIAN: ELIEL CLEMENTE MD DATE OF SERVICE: 04/21/19 Discharge Plan Patient Name: [facility]LA SOLOR[facility] 1955 Planned Disposition: Home Anticipated Discharge Date: 04/21/19 Discharge Date: 04/21/2019 Expected LOS: 2 Initial Reviewer: [email or web address] Initial Review Date: 04/21/2019 Generated: 04/21/19 4:30 pm DCPIA - Discharge Planning Initial Assessment Updated by [email or web address]: Linwood Mccormack on 04/21/19 3:25 pm * Is the patient Alert and Oriented? Yes * How many steps to enter\exit or inside your home? RAMP * PCP DR. BEJARANO * Pharmacy [facility] * Preadmission Environment Home Alone * ADLs Independent * Equipment Cane Nebulizer Rolling Walker Walker * Other Equipment [facility] [employer]REF[employer] * List name and contact numbers for known caregivers / representatives who currently or will assist patient after discharge: JOSUE MARIE, FRIEND, * Verbal permission to speak to the caregivers and representatives has been obtained from the patient. Yes * Community resources currently utilized None * Please name any agencies selected above. NONE * Additional services required to return to the preadmission environment? No * Can the patient safely return to the preadmission environment? Yes * Has this patient been hospitalized within the prior 30 days at any hospital? No Patient Name: MICHELA SOLORIO Page [id number] at 1530 All edits/amendments must be made on the electronic document DICTATION DATE: 04/21/191528 SUPERVISOR EVAPORATOR: OSVALDO 04/21/191528 RPT#: [id number] DC DATE:04/21/19 STATUS: DIS IN [facility] [address] [place] [address] END OF REPORT
--- NOTE | 2019-04-21 15:42 | MORECARE ---
CASE MANAGEMENT DISCHARGE SUMMARY PATIENT: MICHELA SOLORIO UNIT: [id number] ADM DATE: 04/19/19 AGE: 63 : 54 SEX: F ROOM/BED: D.2106 AUTHOR: DYLAN,DOC PHYSICIAN: REFERRING PHYSICIAN: ELIEL CLEMENTE MD DATE OF SERVICE: 04/21/19 Discharge Plan Patient Name: MCIHELA SOLORIO Facility: [facility]:[place] : 1955 Planned Disposition: Home Anticipated Discharge Date: 04/21/19 Discharge Date: 04/21/2019 Expected LOS: 2 Initial Reviewer: [email or web address] Initial Review Date: 04/21/2019 Generated: 04/21/19 4:42 pm Comments DCP- Discharge Planning Updated by [email or web address]: Linwood Mccormack on 04/21/19 2:[address] Patient Name: MICHELA SOLORIO Admission Status: Elective Accout number: [id number] Admission Date: 04-19-2019 : 1955 Admission Diagnosis: Attending: ELIEL CLEMENTE Current LOS: 2 Anticipated DC Date: 04-21-2019 Planned Disposition: Home Primary Insurance: MEDICAID [place] Discharge Planning Comments: CM MET WITH PT IN ROOM TO DISCUSS DISCHARGE PLANNING AND NEEDS.MICHELA SOLORIO provided verbal consent to discuss current and ongoing needs with/in the presence of: FRIEND JOSUE, WHO WAS SLEEPING IN THE ROOM. PT REPORTS LIVING AT HOME INDEPENDENTLY AND ALONE. PT HAS NEBULIZER, WALKER, ROLLATOR WALKER AND CANE PROVIDED BY [facility] [employer]. PT HAS NO OUTSIDE SERVICES ASSISTING IN THE HOME. CM DISCUSSED AVAILABILITY OF HOME HEALTH, REHAB SERVICES AND MEDICAL EQUIPMENT. PT STATES IF SHE QUALIFIES FOR OXYGEN SHE WANTS TO GET IT FROM [facility]. CHOICE SIGNED. PT STATES SHE HAS BEEN TESTED MULTIPLE TIMES ON OTHER ADMISSIONS TO HOSPITAL WITHOUT QUALIFICATION. CM EXPLAINED THE DOCTOR IS WANTING TO BE THROUGH IN TESTING TO MAKE SURE. PT IN AGREEMENT WITH TESTING. PT REPORTS HER FRIEND JOSUE IS HERE TO PICK HER UP FOR DISCHARGE HOME TODAY. CM LATER INFORMED BY RESPIRATORY THERAPIST PERCY, THAT PT DID NOT QUALIFY FOR HOME AND PORTABLE OXYGEN, PCO2 WAS 59. PERCY KAN INFORMED CM THAT PT DOES NOT WANT HOME OXYGEN AND DID NOT WANT FURTHER TESTING AT THIS TIME. CM NOTIFIED SCIENTIST/ENGINEER NURSE AND LEONIDAS ABDUL. Sash Clamp Operator: Linwood Mccormack DCPIA - Discharge Planning Initial Assessment Updated by [email or web address]: Linwood Mccormack on 04/21/19 3:25 pm * Is the patient Alert and Oriented? Yes * How many steps to enter\exit or inside your home? RAMP * PCP DR. BEJARANO * Pharmacy [facility] * Preadmission Environment Home Alone * ADLs Independent * Equipment Cane Nebulizer Rolling Walker Walker * Other Equipment [employer] [facility] MEDICAL EQU[employer] PROVIDER [employer]REF[employer] * List name and contact numbers for known caregivers / representatives who currently or will assist patient after discharge: JOSUE MARIE, FRIEND, * Verbal permission to speak to the caregivers and representatives has been obtained from the patient. Yes * Community resources currently utilized None * Please name any agencies selected above. NONE * Additional services required to return to the preadmission environment? No * Can the patient safely return to the preadmission environment? Yes * Has this patient been hospitalized within the prior 30 days at any hospital? No Last DP export: 04/21/19 2:30 Patient Name: MICHELA SOLORIO Page [id number] at 1542 All edits/amendments must be made on the electronic document DICTATION DATE: 04/21/191541 UNIT COORDINATOR: OSVALDO 04/21/191541 RPT#: [id number] DC DATE:04/21/19 STATUS: DIS IN [facility] [address] [place] [address] END OF REPORT
--- NOTE | 2019-04-21 16:08 | NUR ---
SPOKE WITH PATIENT ON PHONE TO ADVISE SHE LEFT WITHOUT REVIEWING HER DISCHARGE INSTRUCTIONS. I REVIEWED DISCHARGE INSTRUCTIONS OVER THE PHONE AND ADVISED I WOULD MAILED INSTRUCTIONS TO HER. VERBAL ACKNOWLEDGEMENT OBTAINED
== END 2019-04-21 15:00 | disposition home or self-care (01) | DRG 253 ==
LOC: D.ER 04:34 → D.M2 07:06 → OBSVTIME 07:44 → D.M2 18:09
PROVIDERS: Family Medicine; Surgery; ADMIT Emergency Medicine; ATTEND Emergency Medicine
PROC: 03Q70ZZ Repair Right Brachial Artery, Open Approach (ICD-10-PCS; principal; 2019-04-19 16:30)
PROC: B31H1ZZ Fluoroscopy of Right Upper Extremity Arteries using Low Osmolar Contrast (ICD-10-PCS; 2019-04-19 16:30)
DX: I72.1 Aneurysm of artery of upper extremity (principal); S45.101A Unspecified injury of brachial artery, right side, initial encounter; F17.213 Nicotine dependence, cigarettes, with withdrawal; J44.9 Chronic obstructive pulmonary disease, unspecified; I10 Essential (primary) hypertension; I25.10 Atherosclerotic heart disease of native coronary artery without angina pectoris; I73.9 Peripheral vascular disease, unspecified; G62.9 Polyneuropathy, unspecified; X58.XXXA Exposure to other specified factors, initial encounter; G89.29 Other chronic pain

== ENCOUNTER 2020-04-03 19:22 | Emergency (ER) | payer MEDICAID ==
[~2020-04-03] VITALS: Ht 160 cm; Wt 90.9 kg
[2020-04-03 19:47] VITALS: BP 147/68; Ht 160 cm; Wt 90.9 kg
[2020-04-03 21:09] LABS: UDS - AMPHET NEGATIVE QUAL (NEGATIVE); UDS - BARB NEGATIVE QUAL (NEGATIVE); UDS - BENZO NEGATIVE QUAL (NEGATIVE); UDS - COCAINE NEGATIVE QUAL (NEGATIVE); UDS - OPIATE NEGATIVE QUAL (NEGATIVE); UDS - PCP NEGATIVE QUAL (NEGATIVE); UDS - THC NEGATIVE QUAL (NEGATIVE)
[2020-04-03 21:37] LABS: BILIRUBIN NEGATIVE (NEGATIVE); KETONE NEGATIVE (NEGATIVE); NITRITE NEGATIVE (NEGATIVE); UROBILINOGEN NORMAL mg/dL (< 2)
[2020-04-03 21:37] LABS: BASOPHILS 0.6 % (0-2); EOSINOPHILS 1.4 % (0-7); HEMATOCRIT 39.6 % (36.0-48.0); LYMPHOCYTES 32.3 % (15-50); MCH 32.3 pg (26.0-34.0); MCHC 32.8 g/dL (31.0-37.0); MCV 98.3 fL (80.0-100.0); MEAN PLATELET VOLUME 9.2 fL (7.4-10.4); MONOCYTES 8.9 % (2-11); NEUTROPHILS 56.8 % (40-80); RBC 4.03 10x6/uL (4.00-5.40); RDW 13.3 % (11.5-14.5)
[2020-04-03 21:39] LABS: PLATELET COUNT 336 10x3/uL (130-400)
[2020-04-03 21:49] LABS: CALC OSMOLALITY 268 mosm/kg (275-300); CALCIUM 8.9 mg/dL (8.5-10.1); CARBON DIOXIDE 28.7 mmol/L (21.0-32.0); CHLORIDE - SERUM 102 mmol/L (98-107); CREATININE - SERUM 0.8 mg/dL (0.6-1.3); GLUCOSE 97 mg/dL (74-106); POTASSIUM - SERUM 4.3 mmol/L (3.5-5.1); SODIUM 135 mmol/L (136-145); UREA NITROGEN 11 mg/dL (7-18); eGFR NON AFRICAN AMERICAN 76 mL/min (90-120)
[2020-04-03 22:05] LABS: ALBUMIN 3.2 g/dL (3.4-5.0); ALKALINE PHOSPHATASE 77 U/L (30-120); ALT (SGPT) 27 U/L (10-68); BILIRUBIN - TOTAL 0.36 mg/dL (0.2-1.3); C-REACTIVE PROTEIN 0.9 mg/dL (0.0-0.9); LIPASE 94 U/L (73-393); MAGNESIUM - SERUM 1.9 mg/dL (1.8-2.4); PRO BNP 608 pg/mL (0-125); PROTEIN - SERUM 7.6 g/dL (6.4-8.2); THYROID STIMULATING HORMONE 0.88 uIU/mL (0.36-3.74)
[2020-04-03 22:06] LABS: TROPONIN-I 0.016 ng/mL (0.000-0.060)
[2020-04-04] MEDS ORDERED: MORPHINE IMMEDI15 MG PO (00:57)
== END 2020-04-04 01:09 | disposition home or self-care (01) ==
LOC: D.ER 19:22
PROVIDERS: Family Medicine
DX: M25.552 Pain in left hip (principal); I10 Essential (primary) hypertension; J44.9 Chronic obstructive pulmonary disease, unspecified; G62.9 Polyneuropathy, unspecified; M79.652 Pain in left thigh